=== PATIENT | male | born 1950 | race Caucasian/White ===

== ENCOUNTER 2016-04-13 18:04 | Inpatient (IN) | payer OTHER ==
[2016-04-13] MEDS ORDERED: FUROSEMIDE INJ 100 MG/10 ML VIAL IV ONE (18:33)
--- NOTE | 2016-04-13 19:00 | ED.PDOC ---
History of Present Illness - General Chief Complaint: Respiratory Problem Stated Complaint: lower extremity swelling and sob Time Seen by Provider: 04/13/16 18:12 Source: patient, RN notes reviewed, Vital Signs reviewed, family Exam Limitations: no limitations - History of Present Illness Initial Comments: Patient has noticed some progressively worsening swelling of his lower extremities that is now up to his hips. Along with this he is having some worsening SOB. No similar episodes in past but he does take Lasix 80mg PO daily. HE has had some episodes of chest pain/heaviness that he has taken his nitroglycerin for. Timing/Duration: getting worse - Over the past month. Severity: severe Activities at Onset: none Possible Cause: other - Pos. MT Improving Factors: rest Worsening Factors: movement Associated Symptoms: chest pain Respiratory Risk Factors: no cause identified Allergies/Adverse Reactions: Allergies Warfarin [From Coumadin] Allergy (Verified 04/13/16 18:59) Review of Systems - Review of Systems Constitutional: States: weakness. Denies: chills, diaphoresis, fever, malaise EENTM: States: no symptoms reported Respiratory: States: cough, orthopnea, short of breath Cardiology: States: chest pain, edema. Denies: palpitations, syncope Gastrointestinal/Abdominal: States: no symptoms reported. Denies: abdominal pain, nausea, vomiting Musculoskeletal: States: no symptoms reported Skin: States: see HPI, change in color Neurological: Denies: headache, numbness, paresthesia, tingling, tremors Endocrine: States: unexplained weight gain Hematologic/Lymphatic: States: no symptoms reported Family Medical History - Family History Mother Family History: Unknown Physical Exam - Physical Exam General Appearance: Alert, Comfortable, No apparent distress, Well Developed, Well Groomed, Well Hydrated, Well Nourished Neck: non-tender, full range of motion, supple, normal inspection Respiratory: no respiratory distress, no accessory muscle use, decreased breath sounds, crackles Cardiovascular/Chest: no gallop, no JVD, no murmur, bradycardia Peripheral Pulses: dorsalis pedis,right: 2+, dorsalis pedis,left: 2+ Gastrointestinal/Abdominal: normal bowel sounds, non tender, soft, no organomegaly, no pulsatile mass Extremity: pedal edema - 2-4+ all the way up to his proximal thighs. Neurologic: no motor/sensory deficits, alert, normal mood/affect, oriented x 3 Skin Exam: other - Bilateral LE erythema Progress - Progress Progress: 04/13/16 19:[address] Smith. Will admit patient. - Results/Orders Results/Orders: Laboratory Tests 04/13/16 18:45 Sodium 135 Potassium 5.4 H Chloride 101 Carbon Dioxide 25 Anion Gap 14.4 BUN 43 H Creatinine 2.39 H BUN/Creatinine Ratio 18.0 Random Glucose 107 H Serum Osmolality 281.4 Calcium 9.2 Total Bilirubin 0.9 AST 17 ALT < 8 L Alkaline Phosphatase 86 Creatine Kinase 75 CK-MB (CK-2) 2.5 CK-MB (CK-2) % Not Reportable Troponin I < 0.02 B-Natriuretic Peptide 1040.0 H* Serum Total Protein 7.2 Albumin 3.9 Globulin 3.3 Albumin/Globulin Ratio 1.2 - EKG/XRAY/CT EKG: [place], Sinus, nonspecific ST T wave Chg Comments: Demand pacemaker XRAY: chest - No acute process per Radiology Departure - Departure Clinical Impression: Congestive heart failure Time of Disposition: 19:34 Disposition: Admit Patient Condition: Fair Departure Forms: ED Discharge - Pt. Copy, Patient Portal Self Enrollment Decision To Admit - Decistion To Admit Decision to Admit Reason: Admit from ER - CHF
--- NOTE | 2016-04-13 19:10 | RAD ---
EXAM DESCRIPTION: Chest,2 Views CLINICAL HISTORY: SOB/Edema COMPARISON: October 22, 2008 FINDINGS: Cardiac silhouette is unchanged compared with the prior exam. Aorta is tortuous. Pacer leads project over the heart. There is no focal parenchymal or pleural disease. There is no acute osseous process visualized. IMPRESSION: No evidence of acute cardiopulmonary disease. Electronically signed by: Hesham Moreno MD 04/13/2016 7:09 PM RECEIVING COORDINATOR
[2016-04-13] MEDS ORDERED: FUROSEMIDE INJ 40 MG/4 ML VIAL ONE (19:15)
[2016-04-13] MEDS ORDERED: MAGNESIUM HYDROXIDE 30 ML UD PO PRN (19:54)
[2016-04-13] MEDS ORDERED: NITROGLYCERIN 0.4 MG 25 EA TAB SL PRN (19:54)
[2016-04-13] MEDS ORDERED: LEVALBUTEROL NEBS 1.25 MG/3 ML VIAL INH PRN (19:54)
[2016-04-13] MEDS ORDERED: GLUCAGON INJ 1 MG VIAL SUBCU PRN (19:54)
[2016-04-13] MEDS ORDERED: DEXTROSE 50% 25 GM/50 ML SYG IV PRN (19:54)
--- NOTE | 2016-04-13 20:00 | HP ---
HISTORY OF PRESENT ILLNESS: This 66 year-old white male is admitted to the hospital from the Emergency Room because of 1 month of progressive worsening swelling of his lower extremities up to his pelvis with associated shortness of breath and weakness. He has had some mild swelling in the past. He admits that he drinks a lot of fluids, water and coffee every day. He has worked in the oil field in the past. History of a myocardial infarction in 2004 which has resulted in what appeared to be a "aneurysm" on the inside of his heart possibly suggesting an area of dyskinesia noted on echocardiogram by his vehicle insurance agent at the [facility] in [place]. Of note is that he stopped smoking about 5 years ago. After communicating with his clinic at the [facility] in [place], they increased his Lasix to 40 mg twice a day over the last couple of weeks but his swelling has gotten worse. His legs are reddish and warm with an element of "cellulitis." He does not have any oxygen at home and was noted to have saturations in the mid 80s on room air on his arrival into the Emergency Room. He is admitted to the hospital because of this new onset of congestive heart failure for specific treatment and further cardiac intervention. PAST MEDICAL HISTORY: 1. Diabetes mellitus type 2 on Metformin. 2. History of Streptococcus pneumonia in 2008 requiring intubation and transfer to [facility]. 3. History of elevated cholesterol. 4. Chronic obstructive pulmonary disease. 5. History of myocardial infarction in 2004. PAST SURGICAL HISTORY: 1. Appendectomy. 2. Several levels of laminectomy in his back. CURRENT MEDICATIONS: Please refer to nurses' notes for a list of his current verified medications. ALLERGIES: COUMADIN WHICH CAUSES A RASH. FAMILY HISTORY: Heart disease, cancer, strokes and diabetes. SOCIAL HISTORY: The patient has worked in the [employer] for many years. He stopped smoking 5 years ago. REVIEW OF SYSTEMS: The patient has had a significant weight loss since last summer. He was over 300 pounds prior to that and dropped down to about 198 pounds and did not feel that well. He has not been followed closely by local clinics and tends to drive up to [place] when he needs to. No significant fever or chills with his current illness. HEENT: No hearing or vision disturbances. NECK: Otherwise supple except for some decreased range of motion. PULMONARY: Some shortness of breath especially upon exertion. No significant sputum production and no hemoptysis. CARDIOVASCULAR: No chest pains. He has had some irregular pulses in the past. GASTROINTESTINAL: No nausea, vomiting or diarrhea. No blood in the stools noted. GENITOURINARY: No dysuria. EXTREMITIES: Significant edema, swelling, pitting edema up to his hips bilaterally noted especially worsening for the last month even with increased amounts of diuretics which may have contributed to some of his renal failure underlying. NEUROLOGIC: Somewhat weak here lately. No focal weakness. PHYSICAL EXAMINATION: VITAL SIGNS: Afebrile, pulse 61, blood pressure 110/52, respirations 20, pulse oximetry 86% on room air up to 94 after nasal cannula placed. Weight 108 kilos. GENERAL: The patient is awake, alert and oriented, and communicative. His is also present who assists with the history determination and she is an RN. HEENT: Unremarkable. NECK: Increased jugular venous distention at about 45 degrees up to the jaw, right side of the neck. CHEST: Lungs have somewhat diminished breath sounds bilaterally but no significant rhonchi and minimal rales in the bases noted. CARDIOVASCULAR: Heart tones slight irregularities evident and somewhat diminished and distant heart tones present. ABDOMEN: Generally soft with some mild epigastric tenderness upon palpation. No organomegaly otherwise evident. Liver is not significantly enlarged to palpation. EXTREMITIES: He has a firmness with some slight edema but moderate amount of pitting edema up to and including the hip regions bilaterally. Discoloration of the skin appears to be somewhat chronic and there is increased heat on both sides. Negative history of DVT in the past or pulmonary emboli. NEUROLOGIC: No focal neurological deficits. The patient is awake, alert and oriented, and communicative. LABORATORY: White count is 8,800, hemoglobin 11 with a normocytic normochromic presentation, platelet count though is very low at 55,000 and 64% neutrophils. Chemistry shows potassium elevated at 5.4, BUN elevated at 43, creatinine of 2.39, glucose 107. Liver enzymes unremarkable. Troponin is zero. Beta natriuretic peptide of 1,040. Albumin 3.9. Urinalysis and other lab studies pending. No cultures taken yet. Chest x-ray is performed and shows pacemaker in place with a tortuous aorta with no acute cardiopulmonary process appreciated. EKG does show an occasional ventricular pacemaker capture, otherwise with a bradycardic arrhythmia with PVCs noted and associated ST and T changes. ASSESSMENT: 1. Acute congestive heart failure predominantly right ventricular possibly as a residual complication of previous myocardial infarction in 2004. 2. Significant edema state with presentation of anasarca up to the pelvis. 3. History of hypothyroidism. 4. History of coronary artery disease with a probable associated residual ischemic cardiomyopathy. 5. Chronic obstructive pulmonary disease with radiographic findings in a chronic smoker now stopped. 6. Renal failure probable acute, possible prerenal azotemia from significant increased diuresis in the last month. 7. Thrombocytopenia possibly related and secondary to hypersplenism from congestive heart failure. PLAN: Await laboratory studies and repeat in the morning. Continue with the diuresis initiated in the Emergency Room. Continue with oral restricted fluids. Will stop his Metformin because of the renal injury and continue with sliding scale as well as Glucotrol instead. Continue with Lovenox and SCDs for DVT prophylaxis. Check ultrasound Doppler for DVT presence in the lower extremities. To discuss and see if Dr. Garcia would be able to assist with his ongoing care from a local standpoint with recheck of echocardiogram to see if a significant ventricular aneurysm may be present contributing to his current symptoms. Consider low dose Coreg. Low blood pressure may limit the ability of significant beta blockade or Chandan inhibitors. Check magnesium and repeat followup in the morning. #[id number] [facility]
[2016-04-13] MEDS ORDERED: ACETAMINOPHEN 325 MG TAB PO PRN (20:03)
[2016-04-13] MEDS: IPRATROPIUM/ALBUTEROL 3 ML VIAL INH SCH (20:59)
[2016-04-13] MEDS ORDERED: CARVEDILOL 3.125 MG TAB PO SCH (21:00)
[2016-04-13] MEDS: SODIUM CHLORIDE 0.9% (FLUSH) 10 ML SYG IV SCH (21:40)
[2016-04-13] MEDS: ENOXAPARIN SODIUM 40 MG/0.4 ML SYG SUBCU SCH (21:49)
[2016-04-13] MEDS: INSULIN LISPRO 100 UNITS/ML PEN SUBCU SCH (21:50)
[2016-04-13] MEDS: IV SET AND CAP CHANGE INJ INJ SCH (21:51)
[2016-04-14] MEDS ORDERED: ACETAMINOPHEN 500 MG TAB ONE (02:27)
[2016-04-14] MEDS: ACETAMINOPHEN 325 MG TAB PO PRN (02:40)
[2016-04-14] MEDS: INSULIN LISPRO 100 UNITS/ML PEN SUBCU SCH ×4 (07:08→21:14)
[2016-04-14] MEDS: glipiZIDE 5 MG TAB PO SCH (07:10)
--- NOTE | 2016-04-14 07:27 | RAD ---
Study: Frontal and Lateral Views of the Chest. Indication: CHF Comparison: April 13, 2016. Impression: Multiple lead cardiac pacemaker. Cardiomegaly with progressive mild pulmonary vascular congestion. Subtle bibasilar opacities versus atelectasis. Short-term follow-up recommended. No pleural effusion or pneumothorax. Degenerative changes of the spine noted. Electronically signed by: Joby Leyva MD 04/14/2016 7:26 AM CLINIC MANAGER
[2016-04-14] MEDS: ASPIRIN (CHEWABLE) 81 MG TAB PO SCH (08:30)
[2016-04-14] MEDS: FLUoxetine HCL 20 MG CAP PO SCH (08:30)
[2016-04-14] MEDS: LEVOTHYROXINE SODIUM 0.075 MG TAB PO SCH (08:30)
[2016-04-14] MEDS: GABAPENTIN 100 MG CAP PO SCH ×3 (08:31→20:42)
[2016-04-14] MEDS: METOPROLOL SUCCINATE XL 25 MG TAB PO SCH (08:31)
[2016-04-14] MEDS: LISINOPRIL 5 MG TAB PO SCH (08:31)
[2016-04-14] MEDS: SODIUM CHLORIDE 0.9% (FLUSH) 10 ML SYG IV SCH ×2 (08:32→20:43)
[2016-04-14] MEDS: traMADol HCL 50 MG TAB PO PRN (08:47)
[2016-04-14] MEDS: IPRATROPIUM/ALBUTEROL 3 ML VIAL INH SCH ×4 (08:55→19:47)
[2016-04-14] MEDS ORDERED: FUROSEMIDE INJ 20 MG/2 ML VIAL IV SCH (09:00)
--- NOTE | 2016-04-14 10:35 | RAD ---
Study: Frontal and Lateral Views of the Chest. Indication: CHF Comparison: April 13, 2016. Impression: Multiple lead cardiac pacemaker. Cardiomegaly with progressive mild pulmonary vascular congestion. Subtle bibasilar opacities versus atelectasis. Short-term follow-up recommended. No pleural effusion or pneumothorax. Degenerative changes of the spine noted. Electronically signed by: Joby Leyva MD 04/14/2016 7:26 AM BIAS BINDING FOLDER
[2016-04-14] MEDS: FUROSEMIDE INJ 20 MG/2 ML VIAL IV SCH ×2 (10:36→17:25)
[2016-04-14] MEDS: SODIUM CHLORIDE 0.9% (FLUSH) 10 ML SYG IV PRN ×2 (10:37→17:24)
--- NOTE | 2016-04-14 11:21 | US ---
Study: Bilateral Lower Extremity Venous Doppler Sonogram. Indication: edema,erythema Technique: Multiplanar grayscale and Doppler sonographic images of the bilateral lower extremity veins obtained. Findings: The deep veins of the bilateral lower extremities demonstrate appropriate color Doppler flow, compression, and augmentation without evidence of deep venous thrombosis. Impression: 1. No sonographic evidence of deep venous thrombosis of the right or left lower extremities. Electronically signed by: Joby Leyva MD 04/14/2016 11:20 AM MUD ANALYSIS OPERATOR
[2016-04-14] MEDS: TIOTROPIUM INHALER INH SCH (14:01)
[2016-04-14] MEDS: BUDESONIDE/FORMOTEROL 160/4.5 60 PUFF/6 GM INH INH SCH ×2 (14:01→20:00)
--- NOTE | 2016-04-14 17:02 | PN ---
DATE: 04/14/16 SUBJECTIVE: The patient in many ways states that his swollen legs seem to be less swollen today. He still has some exertional shortness of breath upon exertion. When doing an ambulation study, his saturation on room air dropped from 91 to the upper 80s before return to 91 after resting. This will be repeated tomorrow so that we can hopefully see some steady improvement in his lung function. OBJECTIVE: Afebrile, pulse 65, blood pressure 105/60, pulse oximetry 93%. His weight has theoretically gone down from approximately 108 to 103 kilos and whether this is accurate will need to be continued to be monitored. Approximately 2600 mL of urine output has come out since admission. LUNGS: Generally clear with some diminished breath sounds and a few rhonchi, especially on the right compared to the left. HEART: Tones are somewhat distant. ABDOMEN: Soft. Lower extremities have thigh high MARIE hose on and the basic tissue appears to be less tight compared to on admission. LABORATORY: Hemoglobin dropped from 11 to 10.4, platelets from 55,000 to 45, 000. Chemistry shows sodium 133, potassium 5.4 down to 4.6 while BUN decreased slightly from 43 to 42, creatinine from 2.39 to 2.16, glucose 123 while hemoglobin A1c is within normal limits at 5.7. Calcium 8.8, magnesium normal at 1.8. Liver enzymes otherwise unremarkable. Repeat troponin is zero. C reactive protein slightly elevated at 2.1. Cholesterol is 100, triglycerides 63. Urinalysis is clean. Stool guaiac is negative on 1 occasion and no cultures. Lower extremity ultrasound Dopplers for DVT exam is negative. Repeat chest x-ray does still show some degree of pulmonary congestion. ASSESSMENT: 1. Acute congestive heart failure predominantly right ventricle but possibly residual as a complication of previous myocardial infarction versus primary valvular disease. 2. Significant edema state with presentation of anasarca up to the pelvis. 3. History of hypothyroidism. 4. History of coronary artery disease with probable associated residual ischemic cardiomyopathy. 5. Chronic obstructive pulmonary disease with radiographic findings in a chronic smoker now stopped. 6. Chronic renal failure probable acute on chronic possibly aggravated by prerenal azotemia because of significant home diuresis showing slight improvement. 7. Thrombocytopenia possibly related and secondary to hypersplenism from congestive heart failure with observation to continue. PLAN: Continue with thigh high MARIE hose to assist with the removal of the significant tissue edema of the lower extremities. This will be redistributed within the vascular space. Dr. Garcia was able to see the patient and is in the process of completing an echocardiogram and a cardiology note which we are looking forward to seeing. Have requested Social Service to assist with acquiring a summation of various medical and cardiology notes from the [facility] to assist with local care. Social Service also to assist in scheduling a local clinic with the [facility] to allow them to be authorized to provide ongoing care to the patient in addition to the [facility] in [place]. Close followup suggested. Continue treatment course and reevaluation. #[id number] [facility]
[2016-04-14] MEDS: ENOXAPARIN SODIUM 40 MG/0.4 ML SYG SUBCU SCH (20:42)
[2016-04-15] MEDS: LEVOTHYROXINE SODIUM 0.075 MG TAB PO SCH (06:19)
[2016-04-15] MEDS: INSULIN LISPRO 100 UNITS/ML PEN SUBCU SCH ×4 (07:41→21:20)
[2016-04-15] MEDS: glipiZIDE 5 MG TAB PO SCH (07:41)
[2016-04-15] MEDS: TIOTROPIUM INHALER INH SCH (08:49)
[2016-04-15] MEDS: IPRATROPIUM/ALBUTEROL 3 ML VIAL INH SCH ×4 (08:49→20:30)
[2016-04-15] MEDS: BUDESONIDE/FORMOTEROL 160/4.5 60 PUFF/6 GM INH INH SCH ×2 (08:49→20:30)
[2016-04-15] MEDS: FUROSEMIDE INJ 20 MG/2 ML VIAL IV SCH ×2 (09:06→17:49)
[2016-04-15] MEDS: ASPIRIN (CHEWABLE) 81 MG TAB PO SCH (09:07)
[2016-04-15] MEDS: METOPROLOL SUCCINATE XL 25 MG TAB PO SCH (09:07)
[2016-04-15] MEDS: SODIUM CHLORIDE 0.9% (FLUSH) 10 ML SYG IV SCH ×2 (09:08→21:20)
[2016-04-15] MEDS: LISINOPRIL 5 MG TAB PO SCH (09:08)
[2016-04-15] MEDS: GABAPENTIN 100 MG CAP PO SCH ×3 (09:08→21:20)
[2016-04-15] MEDS: FLUoxetine HCL 20 MG CAP PO SCH (09:08)
[2016-04-15] MEDS: PANTOPRAZOLE SODIUM IV 40 MG VIAL IV SCH (12:21)
[2016-04-15] MEDS: SODIUM CHLORIDE 0.9% 10 ML VIAL IV PRN (12:31)
[2016-04-15] MEDS ORDERED: methylPREDNISolone SODIUM SUC 125 MG/2 ML VIAL IV ONE (13:30)
[2016-04-15] MEDS ORDERED: methylPREDNISolone SODIUM SUC 125 MG/2 ML VIAL ONE (18:11)
[2016-04-15] MEDS: ENOXAPARIN SODIUM 40 MG/0.4 ML SYG SUBCU SCH (21:20)
[2016-04-15] MEDS ORDERED: TEMAZEPAM 15 MG CAP PO PRN (23:43)
[2016-04-15] MEDS: SODIUM CHLORIDE 0.9% (FLUSH) 10 ML SYG IV PRN (23:50)
[2016-04-15] MEDS: methylPREDNISolone SODIUM SUC 125 MG/2 ML VIAL IV SCH (23:51)
[2016-04-16] MEDS: SODIUM CHLORIDE 0.9% (FLUSH) 10 ML SYG IV PRN ×2 (06:39→11:47)
[2016-04-16] MEDS: LEVOTHYROXINE SODIUM 0.075 MG TAB PO SCH (06:40)
[2016-04-16] MEDS: glipiZIDE 5 MG TAB PO SCH (06:40)
[2016-04-16] MEDS: methylPREDNISolone SODIUM SUC 125 MG/2 ML VIAL IV SCH ×2 (06:40→11:46)
[2016-04-16] MEDS: INSULIN LISPRO 100 UNITS/ML PEN SUBCU SCH ×4 (08:01→21:02)
[2016-04-16] MEDS: IPRATROPIUM/ALBUTEROL 3 ML VIAL INH SCH ×4 (08:25→21:02)
[2016-04-16] MEDS ORDERED: FUROSEMIDE INJ 40 MG/4 ML VIAL IV SCH (09:00)
[2016-04-16] MEDS: TIOTROPIUM INHALER INH SCH (09:10)
[2016-04-16] MEDS: BUDESONIDE/FORMOTEROL 160/4.5 60 PUFF/6 GM INH INH SCH ×2 (09:10→21:02)
[2016-04-16] MEDS: GABAPENTIN 100 MG CAP PO SCH ×3 (09:11→20:59)
[2016-04-16] MEDS: FLUoxetine HCL 20 MG CAP PO SCH (09:11)
[2016-04-16] MEDS: METOPROLOL SUCCINATE XL 25 MG TAB PO SCH (09:12)
[2016-04-16] MEDS: LISINOPRIL 5 MG TAB PO SCH (09:12)
[2016-04-16] MEDS: ASPIRIN (CHEWABLE) 81 MG TAB PO SCH (09:12)
[2016-04-16] MEDS: SODIUM CHLORIDE 0.9% (FLUSH) 10 ML SYG IV SCH ×2 (09:21→21:00)
--- NOTE | 2016-04-16 10:01 | PN ---
SUPERVISING PHYSICIAN: Grecia Urrutia MD DATE: 04/15/16 SUBJECTIVE: The patient is sitting up in his bed. He denies any shortness of breath, chest pain, abdominal pain, nausea, vomiting, diarrhea, dizziness, or weakness. OBJECTIVE: VITAL SIGNS: Afebrile. Heart rate 65. Blood pressure 106/44. Respiratory rate 20. O2 saturation 90% on 2 liters nasal cannula. LUNGS: Essentially clear to auscultation on the right, but he does have significant expiratory wheezing on the left upper and left middle lobes. He is somewhat diminished at the bases. CARDIAC: Regular rate and rhythm. ABDOMEN: Slightly distended, but nontender. Bowel sounds are positive. EXTREMITIES: No cyanosis, clubbing or edema. NEUROLOGIC: Awake, alert and oriented times three. LABORATORY: Hemoglobin 9.7, hematocrit 29.1, platelet count 48. Sodium 138, potassium 4.1, chloride 103, BUN 45, creatinine 1.99. BNP 790. Lower extremity ultrasounds are negative for DVT. Echocardiogram done per Dr. Garcia yesterday shows ventricular dysfunction with an ejection fraction of 40% to 45% . All other labs and films have been reviewed via the EMR. ASSESSMENT: 1. Acute congestive heart failure with ventricular dysfunction and an ejection fraction of 40% to 45% being seen yesterday per Dr. Garcia. 2. Significant edema state with presentation of anasarca to the pelvis, slightly improved. 3. History of myocardial infarction in 2004. 4. Hypothyroidism. 5. History of coronary artery disease with probable associated residual ischemic cardiomyopathy. 6. Chronic obstructive pulmonary disease. 7. Acute on chronic renal failure, slightly improved. 8. Thrombocytopenia. PLAN: We will continue to monitor the patient closely. We will repeat a CBC and CMP in the morning plus a magnesium. I have ordered a spleen ultrasound tomorrow and we will most likely need a hematology consult, so I will call Dr. Moe tomorrow to see if she can see him the next time she is in [place]. I have given him a proton pump inhibitor for ulcer prophylaxis daily as well as encouraged good pulmonary toilet. I have also started him on some steroids. We will repeat a chest x-ray in the morning. Dr. Garcia has recommended that he continue his Lasix. Right now he continues to IV Lasix and we will possibly switch him to p.o. Lasix tomorrow. We will continue to monitor the patient closely and followup as needed. Dr. Urrutia is the collaborating physician and available for consultation. #[id number] [facility]
[2016-04-16] MEDS: SODIUM CHLORIDE 0.9% 10 ML VIAL IV PRN (11:46)
[2016-04-16] MEDS: PANTOPRAZOLE SODIUM IV 40 MG VIAL IV SCH (11:47)
--- NOTE | 2016-04-16 11:55 | US ---
EXAM DESCRIPTION: Spleen CLINICAL HISTORY: low platelets COMPARISON: None. IMPRESSION: Real-time sonographic images of the left upper quadrant of the abdomen are obtained for evaluation of the spleen. Spleen measures 13.2 x 13.5 x 9.5 cm which is enlarged. Spleen is diffusely homogeneous and normal in echogenicity. Small amount of anechoic fluid suggesting ascites is seen around the spleen. Electronically signed by: Charlie Qiu MD 04/16/2016 11:54 AM SENIOR MEDIA BUYER
--- NOTE | 2016-04-16 17:09 | PN ---
DATE: 04/16/16 SUPERVISING PHYSICIAN: Kar Urrutia M.D. SUBJECTIVE: The patient is walking in the hallways and he is in no acute distress. He denies any shortness of breath. He returned to his room and he denies any shortness of breath, chest pain, abdominal pain, nausea or vomiting, diarrhea, dizziness or weakness. He feels that he has improved daily. He has had a sonogram of his spleen this morning and at this point feels fairly good. OBJECTIVE: VITAL SIGNS: He is afebrile, pulse rate 75, blood pressure 118/62, respiratory rate 18, O2 sat is 93%. RESPIRATORY: Clear to auscultation bilaterally. CARDIAC: Regular rate and rhythm. ABDOMEN: Soft, nondistended, non-tender. Bowel sounds are positive. EXTREMITIES: No cyanosis, clubbing or edema. NEUROLOGIC: He is awake, alert and oriented times three. LABORATORY: WBCs 4.8, hemoglobin 9.9, hematocrit 29.9, platelet count 40, neutrophils 93.5. Chemistries show sodium 135, potassium 4.4, chloride 100, BUN 40, creatinine 1.82. Ultrasound of the spleen shows a spleen that measures 13.2 x 13.5 x 9.5 cm spleen which is enlarged. The spleen is diffusely homogeneous and normal in echogenicity. There is a small amount of anechoic fluid suggesting ascites around the spleen. All other labs and films have been reviewed via the EMR. ASSESSMENT: 1. Acute congestive heart failure with ventricular dysfunction and an ejection fraction of 40 to 45%, recently seen by Dr. Garcia while in the hospital. 2. Significant edema state with presentation of anasarca to the pelvis, slightly improved. 3. Thrombocytopenia with recent sonogram of the spleen that shows an enlarged spleen with some fluid. 4. History of myocardial infarction in 2004. 5. Hypothyroidism. 6. History of coronary artery disease with residual ischemic cardiomyopathy. 7. Chronic obstructive pulmonary disease. 8. Acute on chronic renal failure that continues to improve. PLAN: I have transitioned his Solu-Medrol to p.o. Prednisone. We have also resumed his home dosing of Lasix. I am not sure why his platelets continue to be low, but he will most likely need a followup with Dr. Moe who is a lime supervisor. He should be able to go home tomorrow if he continues to improve. Will repeat his lab and x-ray in the morning. I will continue to encourage good pulmonary toilet, walking in the hallways. Dr. Urrutia is the supervising physician available for consultation. #[id number] [facility]
[2016-04-16] MEDS: ENOXAPARIN SODIUM 40 MG/0.4 ML SYG SUBCU SCH (21:02)
[2016-04-16] MEDS: IV SET AND CAP CHANGE INJ INJ SCH (21:03)
[2016-04-17] MEDS ORDERED: ACETAMINOPHEN 500 MG TAB ONE (05:29)
[2016-04-17] MEDS: ACETAMINOPHEN 325 MG TAB PO PRN (05:36)
[2016-04-17] MEDS: LEVOTHYROXINE SODIUM 0.075 MG TAB PO SCH (06:28)
[2016-04-17] MEDS: glipiZIDE 5 MG TAB PO SCH (06:29)
--- NOTE | 2016-04-17 06:39 | RAD ---
Clinical History : chf , MAIN Exam : PA and lateral views of the chest 04/17/2016 5:00 AM COOK JELLY Comparisons : PA and lateral views of the chest April 16, 2016 Findings : There is stable diffuse peribronchial thickening throughout the lungs bilaterally. There is no focal consolidation or pleural effusion.. The heart is stable in size. The mediastinal contours are normal in appearance. There is a left chest three lead pacer /AICD in place. The thoracic spine is age appropriate. The shoulders are unremarkable. Limited evaluation of the upper abdomen demonstrates no gross abnormalities. Impression: Stable cardiomegaly with mild pulmonary edema. Electronically signed by: Clarence Mayfield MD 04/17/2016 6:38 AM COOK JELLY
[2016-04-17] MEDS: IPRATROPIUM/ALBUTEROL 3 ML VIAL INH SCH ×4 (08:27→21:26)
[2016-04-17] MEDS: TIOTROPIUM INHALER INH SCH (08:27)
[2016-04-17] MEDS: BUDESONIDE/FORMOTEROL 160/4.5 60 PUFF/6 GM INH INH SCH ×2 (08:27→21:27)
[2016-04-17] MEDS: INSULIN LISPRO 100 UNITS/ML PEN SUBCU SCH ×4 (09:00→22:12)
[2016-04-17] MEDS ORDERED: metFORMIN HCL 500 MG TAB PO SCH (09:00)
[2016-04-17] MEDS: FUROSEMIDE 40 MG TAB PO SCH (09:02)
[2016-04-17] MEDS: FLUoxetine HCL 20 MG CAP PO SCH (09:02)
[2016-04-17] MEDS: GABAPENTIN 100 MG CAP PO SCH ×3 (09:02→21:20)
[2016-04-17] MEDS: traMADol HCL 50 MG TAB PO PRN ×2 (09:03→21:20)
[2016-04-17] MEDS: METOPROLOL SUCCINATE XL 25 MG TAB PO SCH (09:04)
[2016-04-17] MEDS: LISINOPRIL 5 MG TAB PO SCH (09:04)
[2016-04-17] MEDS: predniSONE 20 MG TAB PO SCH (09:04)
[2016-04-17] MEDS: ASPIRIN (CHEWABLE) 81 MG TAB PO SCH (09:05)
[2016-04-17] MEDS: SODIUM CHLORIDE 0.9% (FLUSH) 10 ML SYG IV SCH ×2 (09:07→21:24)
[2016-04-17] MEDS ORDERED: ACETAMINOPHEN 500 MG TAB PO PRN (09:11)
[2016-04-17] MEDS ORDERED: HCTZ 25 MG/TRIAMTERENE 37.5 MG 1 EA CAP ONE (09:13)
[2016-04-17] MEDS: HCTZ 25 MG/TRIAMTERENE 37.5 MG 1 EA CAP PO SCH (09:14)
[2016-04-17] MEDS ORDERED: FUROSEMIDE INJ 40 MG/4 ML VIAL IV ONE (10:53)
[2016-04-17] MEDS ORDERED: ALPRAZolam 0.25 MG TAB PO PRN (10:53)
[2016-04-17] MEDS: PANTOPRAZOLE SODIUM TAB 40 MG PO SCH (11:49)
[2016-04-17] MEDS: SODIUM CHLORIDE 0.9% (FLUSH) 10 ML SYG IV PRN (11:51)
--- NOTE | 2016-04-17 13:37 | RAD ---
EXAM DESCRIPTION: Chest,2 Views CLINICAL HISTORY: Congestive heart failure. Wheezing COMPARISON: 04/14/2016 TECHNIQUE: Two-views of the chest. FINDINGS: Cardiac pacemaker. Heart size top limits normal. The lung bases are not completely included in the frontal radiograph. Lungs are hyperinflated similar to previous study. No pulmonary edema or focal consolidation Vascular congestion without interstitial edema or effusion IMPRESSION: Stable chest. Vascular congestion No focal infiltrate. Electronically signed by: Kar Wilcox MD 04/16/2016 7:13 AM ASSISTANT PROFESSOR OF EDUCATION
[2016-04-18] MEDS: LEVOTHYROXINE SODIUM 0.075 MG TAB PO SCH (06:23)
[2016-04-18] MEDS: glipiZIDE 5 MG TAB PO SCH (06:23)
[2016-04-18] MEDS: PANTOPRAZOLE SODIUM TAB 40 MG PO SCH (06:23)
[2016-04-18] MEDS: INSULIN LISPRO 100 UNITS/ML PEN SUBCU SCH (07:37)
[2016-04-18 07:45] VITALS: O2SAT 90
[2016-04-18] MEDS: BUDESONIDE/FORMOTEROL 160/4.5 60 PUFF/6 GM INH INH SCH (08:20)
[2016-04-18] MEDS: IPRATROPIUM/ALBUTEROL 3 ML VIAL INH SCH (08:20)
[2016-04-18] MEDS: TIOTROPIUM INHALER INH SCH (08:20)
[2016-04-18] MEDS: METOPROLOL SUCCINATE XL 25 MG TAB PO SCH (09:19)
[2016-04-18] MEDS: FLUoxetine HCL 20 MG CAP PO SCH (09:19)
[2016-04-18] MEDS: FUROSEMIDE 40 MG TAB PO SCH (09:20)
[2016-04-18] MEDS: HCTZ 25 MG/TRIAMTERENE 37.5 MG 1 EA CAP PO SCH (09:20)
[2016-04-18] MEDS: GABAPENTIN 100 MG CAP PO SCH (09:20)
[2016-04-18] MEDS: LISINOPRIL 5 MG TAB PO SCH (09:20)
[2016-04-18] MEDS: ASPIRIN (CHEWABLE) 81 MG TAB PO SCH (09:20)
[2016-04-18] MEDS: SODIUM CHLORIDE 0.9% (FLUSH) 10 ML SYG IV SCH (09:21)
[2016-04-18] MEDS: predniSONE 20 MG TAB PO SCH (09:24)
[2016-04-18 11:30] VITALS: BP 115/77; TEMP 98.5
--- NOTE | 2016-04-18 12:25 | PN ---
DATE: 04/17/16 SUPERVISING PHYSICIAN: Jimmy García M.D. SUBJECTIVE: The patient is lying in bed. His is at the bedside. He is very lethargic. He says he is having a hard time staying awake today. He has had Restoril the last 2 nights and he has never taken it before. Otherwise he has no complaints of shortness of breath, chest pain, nausea or vomiting or diarrhea. Denies any headache or dizziness, just extremely tired. OBJECTIVE: VITAL SIGNS: He is afebrile, heart rate 87, blood pressure 116/77, respiratory rate 18, O2 sat is 92% and it goes as low as 87% on room air. RESPIRATORY: Essentially clear to auscultation bilaterally, somewhat diminished at the bases. CARDIAC: Regular rate and rhythm. ABDOMEN: Soft, nondistended, non-tender. Bowel sounds are positive. EXTREMITIES: No cyanosis, clubbing or edema. NEUROLOGIC: He is lethargic. He does awaken to command and answers questions appropriately. He is oriented times three. LABORATORY: White count 10.3, hemoglobin 9.7, hematocrit 29.4, platelet count 42, neutrophils 90. Sodium 140, potassium 4.3, chloride 106, creatinine 1.7. Chest x-ray: There is a stable, diffuse peribronchial thickening throughout the lung bilaterally. There is no focal consolidation or pleural effusion. Stable cardiomegaly with mild pulmonary edema. All other labs and films have been reviewed via the EMR. ASSESSMENT: 1. Acute congestive heart failure with ventricular dysfunction and an ejection fraction of 40 to 45% recently seen by Dr. Garcia while in the hospital. 2. Significant edema state with presentation of anasarca to the pelvis that has improved. 3. Thrombocytopenia with recent sonogram of the spleen that shows an enlarged spleen with some fluid collection. 4. History of myocardial infarction in 2004. 5. Hypothyroidism. 6. History of coronary artery disease with residual ischemic cardiomyopathy. 7. Chronic obstructive pulmonary disease. 8. Acute on chronic renal failure that continues to improve. PLAN: We will plan discharge tomorrow. I have discontinued his Restoril. I spoke at length with the [facility] in [place], Dr. Asif's office. I spoke to the ophthalmic medical technician, Megan. I explained to her that the patient needed an appointment and because of his thrombocytopenia he may need a hematology workup as well as his sonogram results may indicate a GI referral. She stated that she would call the hospital on Wednesday and obtain medical records , and they would refer him to the appropriate specialist based on his lab and his testing. I have also ordered home oxygen for him as his oxygen saturations are low on room air and I believe he would benefit from that. Otherwise we will continue to monitor the patient closely. He should be discharged in the morning. Dr. García is the collaborating physician and available for consultation. #[id number] [facility]
--- NOTE | 2016-04-18 18:36 | DS ---
SUPERVISING PHYSICIAN: Jimmy García M.D. DISCHARGE DIAGNOSIS: 1. Acute congestive heart failure with ventricular dysfunction and an ejection fraction of 40 to 45% recently seen by Dr. Garcia while in the hospital. 2. Significant edema state with presentation of anasarca to the pelvis slightly improved. 3. Thrombocytopenia with recent sonogram of the spleen that showed an enlarged spleen with some accumulating fluid. 4. History of myocardial infarction in 2004. 5. Hypothyroidism. 6. History of coronary artery disease. 7. Chronic obstructive pulmonary disease. 8. Acute on chronic renal failure that has improved. HISTORY OF PRESENT ILLNESS: This is a 66 year-old male patient who is a patient of Dr. Mcallister in [place] at the [facility]. On the date of admission, he came to the Emergency Room because of 1 month of progressive worsening swelling of his lower extremities that extended up to his pelvis and associated shortness of breath and weakness. He has had a history of mild swelling in the past and he does admit that he drinks lots of fluids, water and coffee every day. He has worked in the oil field in the past. He has had a history of myocardial infarction in 2004. He had recently communicated with the [facility] and they increased his Lasix from 40 mg daily to 40 mg twice a day, but in spite of the additional diuretic, his swelling has increased. He was admitted to the hospital because of new onset of congestive heart failure and diuresis. HOSPITAL COURSE: The patient was given diuretics in the hospital as well as he was placed on fluid restriction. Due to his acute renal injury, his Metformin was stopped and Glipizide was started. He was also on sliding scale insulin. Dr. Garcia, document management consultant, saw him while he was in the hospital and an echocardiogram was done that showed ventricular dysfunction and an ejection fraction of 40 to 45%, and he recommended that he continue on his diuretics. Over the next few days, diuretics were changed from IV to p.o. His renal function improved from creatinine of 2.39 to a creatinine of 1.75, his baseline is about 1.8. He was admitted with a low platelet count of 55 and over the next several days his platelets dropped to as low as 40. Today on date of discharge, they are 46. A spleen ultrasound was done and it showed an enlarged spleen measuring 3.2 x 3.5 x 9.5 cm. It was homogeneous and normal in echogenicity, and there was a small amount of anechoic fluid suggesting ascites around the spleen. Ultrasound of his lower extremities demonstrated no DVTs. He is up walking around in the halls. He does get short of breath at times and his oxygen saturations have dropped as low as 87% during ambulation, so our Senior Security Analyst, Maia Xie, has initiated home oxygen. On oxygen while ambulating , he stays in the low 90s. I spoke with Dr. Asif's office yesterday in [place] and updated them on all of the findings at this hospitalization. The patient has progressed to be able to be discharged home today. DISCHARGE PLAN: The patient will be discharged home in good condition. He is to resume his diabetic diet and increase activity as tolerated. He will have home oxygen. He is instructed to wear it at night and as needed for shortness of breath. Again, I spoke with Dr. Asif's office and they will call [facility] on Wednesday to obtain the records and testing done while in the hospital. He will need a cardiology followup as well as he may need a hematology referral due to the low platelet count as well as a gastrointestinal consultation for the spleen issues. He is to discontinue his Metformin and continue his other home medications previously prescribed. I have given a prescription for a prednisone taper as well as Glipizide and told him to discontinue the Metformin. DISCHARGE MEDICATIONS: 1. Spiriva. 2. Symbicort. 3. Ventolin inhaler. 4. Niacin. 5. Omeprazole. 6. Potassium chloride. 7. Ropinirole. 8. Triamterene Hydrochlorothiazide. 9. Tramadol. 10. Metoprolol. 11. Lisinopril. 12. Levothyroxine. 13. Ibuprofen. 14. Hydroxyzine pamoate. 15. Gabapentin. 16. Furosemide. 17. Fluoxetine. 18. Vitamin D3. 19. Prednisone taper. 20. Glipizide. Dr. García is the collaborating physician and available for consultation. #[id number] [facility]
== END 2016-04-18 11:41 | disposition home or self-care (01) | DRG 292 ==
LOC: ER 18:04 → OBSVTOIN 20:00 → MS 20:00
PROVIDERS: ADMIT Emergency Medicine; ATTEND Nurse Practitioner Acute Care
DX: I50.9 Heart failure, unspecified (principal); N17.9 Acute kidney failure, unspecified; E03.9 Hypothyroidism, unspecified; I25.10 Atherosclerotic heart disease of native coronary artery without angina pectoris; I25.5 Ischemic cardiomyopathy; J44.9 Chronic obstructive pulmonary disease, unspecified; N18.9 Chronic kidney disease, unspecified; D69.59 Other secondary thrombocytopenia; D73.1 Hypersplenism; E78.00 Pure hypercholesterolemia, unspecified; E11.9 Type 2 diabetes mellitus without complications; I25.2 Old myocardial infarction; Z88.8 Allergy status to other drugs, medicaments and biological substances; Z79.51 Long term (current) use of inhaled steroids; Z79.84 Long term (current) use of oral hypoglycemic drugs; Z87.891 Personal history of nicotine dependence; Z79.1 Long term (current) use of non-steroidal anti-inflammatories (NSAID); Z79.899 Other long term (current) drug therapy

== ENCOUNTER 2016-05-09 17:32 | Inpatient (IN) | payer OTHER ==
--- NOTE | 2016-05-09 18:05 | ED.PDOC ---
History of Present Illness - General Chief Complaint: Diabetic Complaint Stated Complaint: low blood sugar,syncopal Time Seen by Provider: 05/09/16 17:54 Source: family - , EMS Exam Limitations: no limitations - History of Present Illness Initial Comments: Brent Hernandes 66y/o male with history of chf,dm2 was found by laying on the floor between their living room and entrance to the house just opened his eyes when name was called out and on ems arrival blood sugar take was 36mg/dl by FSBS and was given d50 iv and brought it 250 mg /dl. Timing/Duration: 1 hour Improving Factors: nothing Worsening Factors: nothing Associated Symptoms: diaphoresis, weakness Allergies/Adverse Reactions: Allergies Warfarin [From Coumadin] Allergy (Verified 04/13/16 18:59) Home Medications: Ambulatory Orders Albuterol Sulfate [Ventolin Hfa] 90 mcg IN Q6HR PRN 04/13/16 Budes/Formoterol INH 160/4.5 [Symbicort Inhaler 160/4.5] 2 puff INH BID Cholecalciferol [Vitamin D3] 1,000 unit PO DAILY 04/13/16 Fluoxetine HCl 40 mg PO QAM 04/13/16 Furosemide 80 mg PO QAM 04/13/16 Gabapentin [Neurontin] 200 mg PO TID 04/13/16 Hydroxyzine Pamoate 100 mg PO BEDTIME 04/13/16 Ibuprofen 200 mg PO Q4HR PRN 04/13/16 Levothyroxine Sodium [Synthroid] 75 mcg PO DAILY 04/13/16 Lisinopril 5 mg PO DAILY 04/13/16 Metoprolol Tartrate 75 mg PO BID 04/13/16 Niacin [Niacin Td] 1,000 mg PO BEDTIME 04/13/16 Niacin [Niacin Td] 500 mg PO QAM 04/13/16 Potassium Chloride Microencaps [Potassium Chloride Cr] 20 meq PO DAILY 04/13/16 Ropinirole Hydrochloride [Ropinirole HCl] 4 mg PO BEDTIME 04/13/16 Tiotropium [place] Monohydrate [Spiriva Handihaler] 1 puff IN DAILY 04/13/16 Tramadol HCl 50 ea PO DAILY PRN 04/13/16 Triamterene & Hydrochlorothiaz [Triamterene/Hydrochloroth 37.5-25 mg] 25 - 37.5 tab PO DAILY 04/13/16 busPIRone HCL [Buspar] 10 mg PO BEDTIME 05/09/16 glipiZIDE [Glucotrol] 5 mg PO DAILY 05/09/16 Review of Systems - Review of Systems Constitutional: States: no symptoms reported EENTM: States: no symptoms reported Respiratory: States: no symptoms reported Cardiology: States: no symptoms reported Gastrointestinal/Abdominal: States: no symptoms reported Genitourinary: States: no symptoms reported Musculoskeletal: States: no symptoms reported Skin: States: no symptoms reported Neurological: States: other - syncope Endocrine: States: see HPI Hematologic/Lymphatic: States: no symptoms reported Past Medical History (General) - Patient Medical History Hx Seizures: No Hx Stroke: No Hx Asthma: Yes Hx of COPD: Yes Hx Cardiac Disorders: Yes - LA,Pacemaker Hx Congestive Heart Failure: Yes Hx Pacemaker: Yes Hx Hypertension: Yes Hx Diabetes: Yes Surgical History: appendectomy, other - aicd,lumbar laminectomy - Vaccination History Hx Tetanus, Diphtheria Vaccination: Yes Hx Influenza Vaccination: Yes Hx Pneumococcal Vaccination: Yes - Social History Hx Tobacco Use: Yes Hx Alcohol Use: No Hx Substance Use: No Hx Substance Use Treatment: No Hx Depression: No Hx Physical Abuse: No Hx Emotional Abuse: No - Activities of Daily Living Patient Lives Alone: No - lives with family - Female History Patient : No Family Medical History - Family History Mother Family History: Unknown Hx Cardiac Disease: Yes - brother Father Family History: Unknown Brother Hx Cardiac Disease: Yes Physical Exam - Physical Exam General Appearance: Other - somnolent Eye Exam: bilateral normal Ears, Nose, Throat: hearing grossly normal, normal ENT inspection, normal pharynx Neck: non-tender, full range of motion, supple, normal inspection Respiratory: chest non-tender, lungs clear, normal breath sounds, no respiratory distress, no accessory muscle use Cardiovascular/Chest: normal peripheral pulses, regular rate, rhythm, no edema, no gallop, no JVD, no murmur Peripheral Pulses: radial,right: 2+, radial,left: 2+ Gastrointestinal/Abdominal: normal bowel sounds, non tender, soft, no organomegaly, no pulsatile mass Back Exam: normal inspection, no CVA tenderness, no vertebral tenderness Extremity: no calf tenderness, pedal edema - 3plus Neurologic: health social work professor II-XII nml as tested, no motor/sensory deficits, other - negative pronator drift Skin Exam: warm/dry Lymphatic: no adenopathy Comments: GCS-13 Progress - Results/Orders Results/Orders: 05/09/16 17:45 EKG STAT 05/09/16 18:05 Chest,1 View [RAD] Stat 05/09/16 18:48 URINE DRUG SCREEN, 7 ASSAY Stat URINALYSIS Stat 05/09/16 19:30 Dex 5% W/NaCl 0.45% 1000ML [D5 1/2NS 1000ml] 1,000 ml IVS .QD 05/09/16 20:13 Calcium Gluconate Inj 1 gm IV ONCE ONE Sodium Bicarbonate Vial [Sodium Bicarbonate] 50 meq IV ONCE ONE Laboratory Results WBC 5.5 K/mm3 (4.8-10.8) 05/09/16 18:24 RBC 3.85 M/mm3 (4.70-6.10) L 05/09/16 18:24 Hgb 11.7 gm/dL (14.0-18.0) L 05/09/16 18:24 Hct 35.8 % (42.0-52.0) L 05/09/16 18:24 MCV 93.2 fl (80.0-94.0) 05/09/16 18:24 MCH 30.3 pg (27.0-31.0) 05/09/16 18:24 MCHC 32.5 g/dL (33.0-37.0) L 05/09/16 18:24 RDW 18.6 % (11.5-14.5) H 05/09/16 18:24 Plt Count 43 K/mm3 (130-400) L* 05/09/16 18:24 MPV 8.1 fl (7.40-10.4) 05/09/16 18:24 Absolute Neuts (auto) 4.40 K/uL (1.8-6.8) 05/09/16 18:24 Absolute Lymphs (auto) 0.50 K/uL (1.0-3.4) L 05/09/16 18:24 Absolute Monos (auto) 0.20 K/uL (0.2-0.8) 05/09/16 18:24 Absolute Eos (auto) 0.30 K/uL (0.0-0.4) 05/09/16 18:24 Absolute Basos (auto) 0.00 K/uL (0.0-0.1) 05/09/16 18:24 Neutrophils % 80.0 % (42.0-78.0) H 05/09/16 18:24 Lymphocytes % 9.3 % (20.0-50.0) L 05/09/16 18:24 Monocytes % 4.2 % (2.0-9.0) 05/09/16 18:24 Eosinophils % 6.3 % (1.0-5.0) H 05/09/16 18:24 Basophils % 0.2 % (0.0-2.0) 05/09/16 18:24 PT 11.2 SECONDS (9.4-12.5) 05/09/16 18:24 INR 0.990 05/09/16 18:24 PTT (SP) 27.0 SECONDS (25.1-36.5) 05/09/16 18:24 Sodium 138 mmol/L (135-145) 05/09/16 18:24 Potassium 5.7 mmol/L (3.6-5.0) H 05/09/16 18:24 Chloride 108 mmol/L (101-111) 05/09/16 18:24 Carbon Dioxide 22 mmol/L (21-31) 05/09/16 18:24 Anion Gap 13.7 (12-18) 05/09/16 18:24 BUN 53 mg/dL (7-18) H 05/09/16 18:24 Creatinine 2.73 mg/dL (0.6-1.3) H 05/09/16 18:24 BUN/Creatinine Ratio 19.4 (10-20) 05/09/16 18:24 POC Glucose 104 mg/dL (70-105) 05/09/16 17:50 Random Glucose 43 mg/dL (70-105) L 05/09/16 18:24 Serum Osmolality 287.0 mOsm/L (275-295) 05/09/16 18:24 Calcium 9.2 mg/dL (8.4-10.2) 05/09/16 18:24 Magnesium 2.1 mg/dL (1.8-2.5) 05/09/16 18:24 Total Bilirubin 0.6 mg/dL (0.2-1.0) 05/09/16 18:24 Direct Bilirubin 0.3 mg/dL (0-0.2) H 05/09/16 18:24 Indirect Bilirubin 0.3 mg/dL (0.2-0.8) 05/09/16 18:24 AST 17 IU/L (10-42) 05/09/16 18:24 ALT 10 IU/L (10-60) 05/09/16 18:24 Alkaline Phosphatase 75 IU/L (42-121) 05/09/16 18:24 Creatine Kinase 56 IU/L (38-174) 05/09/16 18:24 CK-MB (CK-2) 2.2 ng/mL (0.0-4.4) 05/09/16 18:24 CK-MB (CK-2) % Not Reportable 05/09/16 18:24 Troponin I < 0.02 ng/mL (0.01-0.05) 05/09/16 18:24 B-Natriuretic Peptide 1540.0 pg/ml (0-100) H* 05/09/16 18:24 Serum Total Protein 7.4 gm/dL (6.4-8.2) 05/09/16 18:24 Albumin 4.1 g/dl (3.2-5.5) 05/09/16 18:24 TSH 2.35 uIU/mL (0.34-5.60) 05/09/16 18:24 - EKG/XRAY/CT Comments: pacemaker beat heart rate 62 CT: no intracranial abnormality Departure - Departure Clinical Impression: Altered awareness, transient, Drug-induced hypoglycemia without coma, Acute on chronic kidney failure Congestive heart failure Qualifiers: Congestive heart failure type: combined Congestive heart failure chronicity: chronic Qualifier Code: (I50.42) Chronic combined systolic (congestive) and diastolic (congestive) heart failure Time of Disposition: 21:21 - D/W Georges Higuera [facility] Disposition: Admit Patient Condition: Fair Home Medications: Ambulatory Orders Albuterol Sulfate [Ventolin Hfa] 90 mcg IN Q6HR PRN 04/13/16 Budes/Formoterol INH 160/4.5 [Symbicort Inhaler 160/4.5] 2 puff INH BID Cholecalciferol [Vitamin D3] 1,000 unit PO DAILY 04/13/16 Fluoxetine HCl 40 mg PO QAM 04/13/16 Furosemide 80 mg PO QAM 04/13/16 Gabapentin [Neurontin] 200 mg PO TID 04/13/16 Hydroxyzine Pamoate 100 mg PO BEDTIME 04/13/16 Ibuprofen 200 mg PO Q4HR PRN 04/13/16 Levothyroxine Sodium [Synthroid] 75 mcg PO DAILY 04/13/16 Lisinopril 5 mg PO DAILY 04/13/16 Metoprolol Tartrate 75 mg PO BID 04/13/16 Niacin [Niacin Td] 1,000 mg PO BEDTIME 04/13/16 Niacin [Niacin Td] 500 mg PO QAM 04/13/16 Potassium Chloride Microencaps [Potassium Chloride Cr] 20 meq PO DAILY 04/13/16 Ropinirole Hydrochloride [Ropinirole HCl] 4 mg PO BEDTIME 04/13/16 Tiotropium [place] Monohydrate [Spiriva Handihaler] 1 puff IN DAILY 04/13/16 Tramadol HCl 50 ea PO DAILY PRN 04/13/16 Triamterene & Hydrochlorothiaz [Triamterene/Hydrochloroth 37.5-25 mg] 25 - 37.5 tab PO DAILY 04/13/16 busPIRone HCL [Buspar] 10 mg PO BEDTIME 05/09/16 glipiZIDE [Glucotrol] 5 mg PO DAILY 05/09/16
[2016-05-09] MEDS ORDERED: POVIDONE IODINE 10 % 15 ML UD TOP ONE (18:34)
--- NOTE | 2016-05-09 18:57 | CT ---
EXAM DESCRIPTION: Head CLINICAL HISTORY: 66 years, Male, syncope TECHNIQUE: 5mm slice thickness axial images through the brain were performed in the absence of intravenous contrast. Dose reduction techniques were utilized. COMPARISON: None. FINDINGS: Several images are degraded by motion artifact. Involutional changes are present. No hemorrhage is identified. The lateral ventricles are not out of proportion to the degree of involution. The basal cisterns are patent. Vascular calcifications are present. The visualized paranasal sinuses and mastoid air cells are patent. No fracture is identified. IMPRESSION: No evidence of acute traumatic intracranial injury status post syncope. No intracranial hemorrhage. Mild motion artifact. Electronically signed by: Sharon Sam MD 05/09/2016 6:55 PM CDT
[2016-05-09] MEDS ORDERED: DEX 5% W/NACL 0.45% 1000ML 1,000 ML IVS ONE (19:10)
[2016-05-09] MEDS: DEX 5% W/NACL 0.45% 1000ML 1,000 ML IVS PRN ×2 (19:15→20:30)
[2016-05-09] MEDS ORDERED: CALCIUM GLUCONATE INJ 1 GM/10 ML VIAL ONE (20:11)
[2016-05-09] MEDS ORDERED: SODIUM BICARBONATE SYRINGE 50 MEQ/50 ML SYG IV ONE (20:12)
[2016-05-09] MEDS ORDERED: CALCIUM GLUCONATE INJ 1 GM/10 ML VIAL IV ONE (20:13)
[2016-05-09] MEDS ORDERED: SODIUM BICARBONATE VIAL 50 MEQ/50 ML VIAL IV ONE (20:13)
[2016-05-09] MEDS ORDERED: DEX 5% IV ONE (20:30)
[2016-05-09] MEDS ORDERED: NACL 0.45% IV ONE (20:30)
[2016-05-09] MEDS ORDERED: SODIUM BICARBONATE IV ONE (20:30)
--- NOTE | 2016-05-09 21:15 | HP ---
SUPERVISING PHYSICIAN: HILL JIMENEZ MD CHIEF COMPLAINT: LOW BLOOD SUGAR AND SYNCOPAL EPISODE HISTORY OF PRESENT ILLNESS: Mr. Hernandes is a 66 year-old male patient that has significant congestive heart failure, diabetes mellitus type 2 , who was found by his on the floor at home between the living room and entrance to the house. noted the patient would open his eyes when his name was called but would not respond other than that. EMS was called, they arrived on the scene and found the patient to have a blood sugar of 36 mg per deciliter at which time he was given 1 amp of D50 which brought his blood sugar up to 250. He was then transferred to the Emergency Department via ambulance for further evaluation. Laboratory studies in the Emergency Room showed the patient to have a blood sugar of 104 initially but shortly after full workup, chemistry showed he had a blood sugar of 43, potassium 5.7, BUN 53, creatinine 2.73. He also had an elevated BNP of 50 and 40, otherwise liver functions showed to be within normal limits. Toxicology screen showed to be negative for all substances tested. He was also noted to have a platelet count of 43,000 which is chronic for the patient. The patient was much more alert in the Emergency Room after given a nutritional tray. He was started on IV fluids with bicarb in efforts to help improve his kidney function. Review of his previous records show that his baseline creatinine appears to be around 1.7 to 1.8. He was just recently discharged from the hospital from admission of for acute congestive heart failure exacerbation. It was noted that his hemoglobin A1c was 5.7 and on previous hospitalization initial medication regimen indicated he was on Metformin as well as glipizide. He was instructed at discharge to stop taking his Metformin but continue with the glipizide. The patient notes that in the last several days he has been off his medication regimen and feels like he may have taken his glipizide a couple of times in the previous 24 hours. Given the inability to continue to maintain a blood sugar without significant assistance and worsening renal function, the patient is now going to be admitted to the medical/surgical floor for continuation of treatment and further evaluation. PAST MEDICAL HISTORY: 1, Diabetes mellitus type 2 on oral therapy that included initially Metformin and Glucotrol, only currently taking Glucotrol since previous discharge. 2. History of Streptococcus pneumonia in 2008 requiring hospitalization and intubation.. 3. History of elevated cholesterol. 4. Chronic obstructive pulmonary disease. 5. History of myocardial infarction. 6. Congestive heart failure, chronic systolic diastolic with last echocardiogram on 04/06/16 showing an ejection fraction of approximately 40 to 45%. 7. History of thrombocytopenia with mild splenomegaly noted on 04/06/16. 8. History of restless leg syndrome. 9. Hypertension. 10. Hypothyroidism on supplementation with normal TSH on last admission. 11. Dual chamber pacemaker placement. PAST SURGICAL HISTORY: 1. Appendectomy. 2. Multiple laminectomies; to lower back. . CURRENT MEDICATIONS: 1. Glucotrol 5 mg daily. 2. BuSpar 10 mg at bedtime. 3. Dyazide 25/375.5 daily. 4. Tramadol 50 mg daily p.r.n. 5. Spiriva inhaler 1 puff daily. 6. Ropinirole 4 mg at bedtime. 7. Potassium chloride 20 mEq daily. 8. Niacin 1000 mg at bedtime. 9. Niacin 500 mg in the morning. 10. Metoprolol 75 mg b.i.d. 11. Lisinopril 5 mg daily. 12. Synthroid 75 mcg daily. 13. Ibuprofen 200 mg every 4 hours p.r.n. pain. 14. Hydroxyzine Pamoate 100 mg at bedtime. 15. Neurontin 299 mg 3 times a day. 16. Lasix 80 mg every morning. 17. Fluoxetine 40 mg daily. 18. Vitamin D3, 1000 U daily. 19. Symbicort inhaler 160/4.5, 2 puffs daily b.i.d. 20. Albuterol inhaler 90 mcg every 6 hours as needed for shortness of breath. ALLERGIES: COUMADIN CAUSES A RASH FAMILY HISTORY: Significant heart disease, cancer, strokes, diabetes. 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 He has worked in the [employer] for many years. He is a former smoker but stopped smoking 5 years previously. He denies any alcohol or illicit drug use. REVIEW OF SYSTEMS: CONSTITUTIONAL: Patient notes that he has had a significant weight loss since last summer of over 300 pounds. He denies any significant fevers or chills. HEENT: No hearing or visual disturbances. RESPIRATORY: He does have some shortness of breath with exertion. No significant cough, no hemoptysis. He has a recent diagnosis of congestive heart failure. CARDIOVASCULAR: Denies any chest pains, palpitations, has had a syncopal episode contributed to low blood sugar. He has a history of congestive heart failure with last echocardiogram showing to be 40 to 45% with significant lower extremity edema on previous occasions but controlled with MARIE hose and Lasix. GASTROINTESTINAL: Denies nausea, vomiting, diarrhea. GENITOURINARY: No dysuria or increased frequency or urinary symptoms. NEUROLOGICAL: Positive for syncopal episode contributed to low blood sugar but denies any focal weaknesses. PHYSICAL EXAMINATION: VITAL SIGNS: Temperature 94.6, pulse 64, blood pressure 105/50, respirations 16 , saturating 93% on room air. Admission weight 93.8 kg which is down from previous admission of 108 kg. GENERAL: Patient is alert, eating a sandwich, appears to be in no acute distress. He is quite pleasant. HEENT: Tympanic membranes clear bilaterally. Oropharynx is pink and moist without lesions,. NECK: No jugular venous distention. CHEST: Lungs are clear to auscultation without any rhonchi, wheezing or rales , just only slightly diminished towards the bases. CARDIOVASCULAR: Regular rate and rhythm with no appreciable murmurs, rubs, or gallops. ABDOMEN: Soft, non-tender, positive bowel sounds. No organomegaly noted. EXTREMITIES: No cyanosis, clubbing, or edema. There is notable discoloration to the skin from chronic edema bilaterally with no edema as he wears MARIE hose as previous admission. NEUROLOGIC: Alert and oriented x3. Cranial nerves II through XII grossly intact. Facial features are symmetric. Extraocular movements within normal limits. There is no nystagmus, no notable localizing or focalizing neuromotor deficits. LABORATORY: CBC shows a white count of 5.5, hemoglobin 11.7, hematocrit 35.8, platelet count decreased to 43,000 which is chronic for the patient. Differential did show a left shift. Coagulation studies showed a normal PT/ PTT. Chemistries on admission showed a sodium of 138, potassium 5.7, initial glucose 104 which dropped to a low of 43 during admission and at time of admission to the medical/surgical floor, blood sugar was 42. Serum osmolality 287, BUN 53, creatinine 2.73, liver functions showed to be within normal limits. He had an elevated BNP of 1540 with troponin less than 0.02. TSH 2.35. Urinalysis did show a trace of blood on dipstick, otherwise was within normal limits. Toxicology screen was negative for all substances tested. MICROBIOLOGY: No microbiology specimens submitted. Chest x-ray in the Emergency Department and per radiology interpretation showed no acute cardiopulmonary disease. No mention of pulmonary edema, stable pacemaker, ICD. CT of the head without contrast per radiology interpretation showed no evidence of acute traumatic intracranial injuries, no intracranial hemorrhage. EKG showed atrial ventricular paced rhythm. ASSESSMENT: 1. Syncopal episode likely contributed to the hypoglycemic episode, again, with the patient having a dual chamber pacemaker in place with no mention of complications within the last several days. 2. Hypoglycemic event possibly contributing to the syncopal episode with the patient possibly taking excessive Glucotrol in the last 24 hours. 3. Chronic congestive heart failure, diastolic systolic dysfunction with last echocardiogram on 04/13/16 showing 40 to 45% ejection fraction with recent exacerbation but stable on admission. 4. Hypothyroidism on supplementation. 5. Coronary artery disease. 6. History of chronic obstructive pulmonary disease in a chronic smoker, having stopped smoking 5 years previously. 7. Renal failure, probably acute, probably acute possibly prerenal azotemia from multiple diuretics. 8. Electrolyte imbalance, moderate hypokalemia likely secondary to medications to include Maxzide as well as worsening renal function. 9. Thrombocytopenia with documentation of hypersplenism on last admission by sonogram. 10. Diabetes mellitus type 2 having previously been on Metformin, Glucotrol but last hemoglobin A1c in the last month being 5.7% with patient being taken off Metformin with current episode of hypoglycemia. PLAN: The patient will be admitted to the medical/surgical floor for continued treatment and evaluation and placed on telemetry given that he has a mild hyperkalemia. He was given 1 amp of bicarb in the Emergency Department that was followed up with D5 normal saline with 1 amp of sodium bicarbonate running at a rate of 100 cc an hour. This fluid regimen will be continued as he does have significant congestive heart failure in attempts to normalize his fluid status and assist in improving renal function. Will plan to hold his Maxzide in his medication regimen as well as Glucotrol given that he has significant hyperkalemia and multiple episodes of hypoglycemia. He will be on a sliding scale ac and hs with close monitoring blood sugars. We will start him on DVT prophylaxis with MARIE hose, early ambulation and hold Lovenox given his thrombocytopenia. Will continue with studies of his urine with close monitoring with repeat CBC and CMP in the morning. Anticipate length of stay to be 2 to 3 days pending stabilization of his blood sugar. Until the, we will continue to monitor the patient closely and treat appropriately. #[id number] [facility]
--- NOTE | 2016-05-09 21:48 | RAD ---
EXAM DESCRIPTION: Chest,1 View CLINICAL HISTORY: 66 years, Male, chf COMPARISON: Chest x-ray dated 04/17/2016. FINDINGS: A single frontal chest radiograph was performed. Stable positioning of the pacemaker with AICD. Leads are unchanged in location with the RIGHT atrial lead terminating more medially than expected, stable. The cardiac silhouette remains enlarged but the interstitial thickening and peribronchial cuffing has resolved since the prior study. No pulmonary edema is detected. The lungs are well expanded and clear. The costophrenic sulci are sharp. The hilar regions, trachea, soft tissues and bony structures are unremarkable. IMPRESSION: No acute cardiopulmonary disease. Cardiomegaly without pulmonary edema. Stable location of the these pacemaker and AICD leads. It is difficult to determine which leads are active but the RIGHT atrial lead terminates more medially located than normally seen. This appearance is stable. Electronically signed by: Sharon Sam MD 05/09/2016 9:47 PM CDT
[2016-05-09] MEDS ORDERED: traMADol HCL 50 MG TAB PO PRN (22:27)
[2016-05-09] MEDS ORDERED: METOPROLOL TARTRATE 50 MG TAB PO SCH (22:30)
[2016-05-09] MEDS ORDERED: DEXTROSE 50% 25 GM/50 ML SYG IV PRN (22:33)
[2016-05-09] MEDS ORDERED: ACETAMINOPHEN SUPPOSITORY 650 MG PR PRN (22:33)
[2016-05-09] MEDS ORDERED: SODIUM CHLORIDE 0.9% (FLUSH) 10 ML SYG IV PRN (22:33)
[2016-05-09] MEDS ORDERED: GLUCAGON INJ 1 MG VIAL SUBCU PRN (22:33)
[2016-05-09] MEDS ORDERED: IV SET AND CAP CHANGE INJ INJ SCH (23:00)
[2016-05-09] MEDS ORDERED: METOPROLOL TARTRATE 25 MG TAB ONE (23:45)
[2016-05-10] MEDS ORDERED: hydrOXYzine PAMOATE 25 MG CAP ONE
[2016-05-10] MEDS: GABAPENTIN 100 MG CAP PO SCH ×4 (00:07→21:11)
[2016-05-10] MEDS: BUDESONIDE/FORMOTEROL 160/4.5 60 PUFF/6 GM INH INH SCH ×3 (00:35→20:51)
[2016-05-10] MEDS ORDERED: CHOLECALCIFEROL 2,000 IU TAB PO ONE (07:34)
[2016-05-10] MEDS: FLUoxetine HCL 20 MG CAP PO SCH (08:48)
[2016-05-10] MEDS: CHOLECALCIFEROL 2,000 IU TAB PO SCH (08:48)
[2016-05-10] MEDS: FUROSEMIDE 40 MG TAB PO SCH (08:49)
[2016-05-10] MEDS: LISINOPRIL 5 MG TAB PO SCH (08:49)
[2016-05-10] MEDS: LEVOTHYROXINE SODIUM 0.075 MG TAB PO SCH (08:51)
[2016-05-10] MEDS: INSULIN LISPRO 100 UNITS/ML PEN SUBCU SCH ×4 (08:56→21:30)
[2016-05-10] MEDS: TIOTROPIUM INHALER INH SCH (09:21)
[2016-05-10] MEDS ORDERED: DEX 5% W/NACL 0.45% 1000ML 1,000 ML IVS ONE (11:10)
[2016-05-10] MEDS ORDERED: SODIUM BICARBONATE VIAL 50 MEQ/50 ML VIAL ONE (11:11)
[2016-05-10] MEDS: DEX 5% IVS PRN (13:11)
[2016-05-10] MEDS: NACL 0.45% IVS PRN (13:11)
[2016-05-10] MEDS: SODIUM BICARBONATE IVS PRN (13:11)
[2016-05-10] MEDS: NIACIN 500 MG PO SCH (14:33)
[2016-05-10] MEDS: METOPROLOL TARTRATE 50 MG TAB PO SCH (17:18)
--- NOTE | 2016-05-10 18:16 | PN ---
DATE: 05/10/16 SUPERVISING PHYSICIAN: Jimmy García M.D. SUBJECTIVE: The patient is resting. His sugars have been better controlled through the night with diet and have stabilized. He has had no nausea or vomiting. No chest pains. OBJECTIVE: VITAL SIGNS: Temperature 98.5, pulse 58, blood pressure 100.51, respirations 18, O2 sat 95% on room air. I's and O's are not available as output has not been measured. GENERAL: The patient is alert and oriented times three. CHEST: Clear to auscultation bilaterally. HEART: Regular rate and rhythm. ABDOMEN: Soft, non-tender. Positive bowel sounds. EXTREMITIES: No clubbing, cyanosis or edema. MARIE hose are in place. NEUROLOGIC: He is alert and oriented times three. LABORATORY: White count is 5.5, hemoglobin 9.7, hematocrit 29.5, platelet count 43,000. Differential shows to be within normal limits now. Chemistries show potassium 5.5 compared to admission of 5.7, BUN has improved somewhat from 53 to 50 as well as creatinine has gone down to 2.28. Glucose has been 42 to 101. ASSESSMENT: 1. Syncopal episode likely contributed to by hypoglycemic event with the patient having a dual chamber pacemaker placed with no mention of complications within the last several days. 2. Hypoglycemia contributing to syncopal episode with the patient possibly taking excessive Glucotrol in the last 24 hours prior to admission now showing stabilization of blood sugars. 3. Chronic congestive heart failure, diastolic/systolic dysfunction with last echocardiogram on 04/13/16 showing 40 to 45% ejection fraction with recent exacerbation in the last week, but stable on current admission. 4. Hypothyroidism now on supplementation. 5. Coronary artery disease. 6. History of chronic obstructive pulmonary disease in a chronic smoker having stopped smoking 5 years previously. 7. Renal failure probably prerenal azotemia from multiple diuretics and some mild dehydration. 8. Electrolyte imbalance with moderate hypokalemia likely secondary to medications including Maxzide as well as some worsening renal function. 9. Thrombocytopenia with documentation of hypersplenism on last admission by sonogram. 10. Diabetes mellitus type 2 having previously been on Metformin, Glucotrol but last hemoglobin A1c in the last month being 5.7% with patient being taken recently off Metformin but currently continues to take Glucotrol which possibly could have contributed to the hypoglycemic event. PLAN: The patient was given a liter of D5 and a half normal saline with 50 of sodium bicarb initially in the E. R. This was completed. Additional fluids will be given to include D5 and a half with 75 mEq of sodium bicarbonate with close monitoring of his BMP. He does have MARIE hose in place and has actually been ambulating very well. Will continue to monitor the patient closely. Anticipate discharge tomorrow and allow him to further stabilize his blood sugar as well as assist in improving his renal function with some mild gentle alkalinization and additional fluid. Until then, will continue to monitor the patient closely and treat appropriately. #[id number] [facility]
[2016-05-10] MEDS ORDERED: NON-FORMULARY MEDICATION 1 EA MIS (Ropinirole Hydrochloride [Ropinirole Hcl] 4 MG) PO SCH (21:00)
[2016-05-10] MEDS ORDERED: busPIRone HCL 5 MG TAB PO SCH (21:00)
[2016-05-10] MEDS ORDERED: hydrOXYzine PAMOATE 25 MG CAP PO SCH (21:00)
[2016-05-10] MEDS ORDERED: HYDROXYZINE PAMOATE 100 MG PO SCH (21:00)
[2016-05-10] MEDS ORDERED: NIACIN 1000 MG PO SCH (21:00)
--- NOTE | 2016-05-10 21:11 | PCM.CORE ---
Physician DVT/VTE - Contraindications Medication Contraindication: Medical Contraindication - low plt count - Nurse DVT Assessment & Total Each Risk Factor Represents 2 Points: Age 60-74 Each Risk Factor Represents 1 Point: Hx of smoking past year Each Risk Factor is 1 Point: Serious Lung disease (pnemonia <1month, COPD, emphysema,etc) DVT Assessment Score: 4 - 5 or more Very High Risk Treatments: Early Ambulation *, Sequential Compression Device
[2016-05-10] MEDS ORDERED: TEMAZEPAM 15 MG CAP PO PRN (23:07)
[2016-05-11] MEDS ORDERED: DEX 5% W/NACL 0.45% 1000ML 1,000 ML IVS ONE (02:35)
[2016-05-11] MEDS ORDERED: SODIUM BICARBONATE VIAL 50 MEQ/50 ML VIAL ONE (02:35)
[2016-05-11] MEDS: SODIUM BICARBONATE IVS PRN (02:43)
[2016-05-11] MEDS: DEX 5% IVS PRN (02:43)
[2016-05-11] MEDS: NACL 0.45% IVS PRN (02:43)
[2016-05-11] MEDS: LEVOTHYROXINE SODIUM 0.075 MG TAB PO SCH (06:17)
[2016-05-11 06:28] VITALS: BP 97/55; TEMP 97.5
[2016-05-11] MEDS: INSULIN LISPRO 100 UNITS/ML PEN SUBCU SCH (08:11)
[2016-05-11] MEDS: METOPROLOL TARTRATE 50 MG TAB PO SCH (08:11)
[2016-05-11] MEDS: FLUoxetine HCL 20 MG CAP PO SCH (09:18)
[2016-05-11] MEDS: FUROSEMIDE 40 MG TAB PO SCH (09:18)
[2016-05-11] MEDS: CHOLECALCIFEROL 2,000 IU TAB PO SCH (09:18)
[2016-05-11] MEDS: LISINOPRIL 5 MG TAB PO SCH (09:18)
[2016-05-11] MEDS: GABAPENTIN 100 MG CAP PO SCH (09:19)
[2016-05-11] MEDS: NIACIN 500 MG PO SCH (09:19)
[2016-05-11] MEDS: TIOTROPIUM INHALER INH SCH (09:56)
[2016-05-11] MEDS: BUDESONIDE/FORMOTEROL 160/4.5 60 PUFF/6 GM INH INH SCH (09:56)
[2016-05-11 09:57] VITALS: O2SAT 97
--- NOTE | 2016-05-11 13:38 | DS ---
DISCHARGE DIAGNOSIS: 1. Acute syncopal episode, probably secondary to symptomatic hypoglycemic event , requiring observation and close telemetry followup, again, because of underlying consider condition as well. 2. Severe hypoglycemia, contributing to altered level of consciousness noted to be present even with reduction of oral hypoglycemic agents in an attempt to prevent further kidney problems and showing the need for further adjustment of medications. 3. History of chronic congestive heart failure involving diastolic and systolic dysfunction with last echocardiogram on 04/13/16 showing 40 to 45% ejection fraction, continuing on fluid restrictions. 4. History of hypothyroidism on supplementation. 5. History of Coronary artery disease. 6. History of chronic obstructive pulmonary disease in a chronic smoker, having stopped smoking about 5 years previously. 7. Chronic renal failure with prerenal azotemia, aggravated by multiple diuresis and mild dehydration, showing some improvement, though still with an elevated baseline creatinine, BUN noted. 8. Hyperkalemia, possibly aggravated by potassium supplementation along with chronic renal insufficiency state. 9. Chronic thrombocytopenia with documentation of hypersplenism on last admission noted on sonogram. 10. Diabetes mellitus, type 2, having previously been on metformin and Glucotrol with the metformin stopped because of renal injury, now on Glucotrol and that also being adjusted down with a fairly normal hemoglobin A1c of 5.7% and close followup necessary because of the severity of the hypoglycemic event leading to the patient's current admission to the hospital. HISTORY OF PRESENT ILLNESS: This 66-year-old, white male was admitted to the hospital from the Emergency Room because of significant altered level of consciousness. He apparently was found on the floor and was noted to have a very low sugar into the 30s requiring 1 amp of D50 with the sugar still being in the 40s even after the treatment. In the Emergency Room, he showed slow improvement. His potassium was also elevated. His kidney function was also slightly decreased, showing some improvement as the treatment course continued. He was admitted to the hospital for adjustment of medication and for special observation for reasons of altered level of consciousness with further telemetry and readjustment of medications for the congestive heart failure and fluid consumption. LABORATORY: White count was 4.6 on daily with hemoglobin dropping with gentle hydration from 11.7 down to 9.5. Significant thrombocytopenia of 34,000 was noted at the time of discharge and will require hematological followup. INR 0.99. Chemistries showed BUN 53 down to 50, creatinine 2.73 down to 2.29. Glucose initially 43 and was up to 160 fasting on the day of discharge. Beta natriuretic peptide with a history of congestive heart failure was 1540 while troponin was 0. TSH normal at 2.35. Urinalysis showed a trace of blood and no drugs noted on urine drug screen. No cultures obtained. Head CT was performed in the Emergency Room and showed no evidence of an acute traumatic intracranial injury status post syncopal episode with no intracranial hemorrhage evident. Chest x-ray performed in the Emergency Room showed pacemaker wires with chest showing cardiomegaly without pulmonary edema. Chronic obstructive pulmonary disease evident. HOSPITAL COURSE: The patient was feeling much improved on the morning of discharge and was ready for continued followup in the outpatient department. PLAN: The patient was discharged to have further followup in the outpatient department. His primary care provider is in the [facility] in [place] and we will attempt to see if he can be followed up also with Dr. Mccauley in the [facility] who will also work with the [facility] in [place] because of its distance. Followup with Dr. Mccauley in a week with a repeat BNP and CBC to check on platelets, glucose, electrolytes and kidney function. He is to be scheduled for a sleep study. He may benefit from BiPAP at bedtime. Followup at the [facility] in [place] as well. Limit p.o. fluids to 1800 mL instead of 1500 mL per 24 hours. Followup with a hematology clinic for the very low platelets and a history of hypersplenism. Continue with oxygen at bedtime. Decrease glipizide to only 2.5 mg q.a.m. Stay on a diabetic diet and be as active as possible. Hold potassium medicines until re-started by Dr. Mccauley after laboratory reevaluation. Adjust Lasix depending up on the edema state. Check stools for blood and bring the cards to Dr. Mccauley's office for development. Follow glucose fingersticks regularly. Return if not improving. #[id number] [facility]
== END 2016-05-11 11:35 | disposition home or self-care (01) | DRG 683 ==
LOC: ER 17:32 → MS 21:15
PROVIDERS: ADMIT Nurse Practitioner Family; ATTEND Emergency Medicine
DX: N17.9 Acute kidney failure, unspecified (principal); I50.42 Chronic combined systolic (congestive) and diastolic (congestive) heart failure; I13.0 Hypertensive heart and chronic kidney disease with heart failure and stage 1 through stage 4 chronic kidney disease, or unspecified chronic kidney disease; E11.649 Type 2 diabetes mellitus with hypoglycemia without coma; E03.9 Hypothyroidism, unspecified; I25.10 Atherosclerotic heart disease of native coronary artery without angina pectoris; J44.9 Chronic obstructive pulmonary disease, unspecified; N18.9 Chronic kidney disease, unspecified; E86.0 Dehydration; E87.5 Hyperkalemia; E87.6 Hypokalemia; D73.1 Hypersplenism; D69.59 Other secondary thrombocytopenia; E78.00 Pure hypercholesterolemia, unspecified; I25.2 Old myocardial infarction; G25.81 Restless legs syndrome; Z87.891 Personal history of nicotine dependence; Z95.0 Presence of cardiac pacemaker; Z79.84 Long term (current) use of oral hypoglycemic drugs; Z79.1 Long term (current) use of non-steroidal anti-inflammatories (NSAID); Z79.51 Long term (current) use of inhaled steroids; Z79.899 Other long term (current) drug therapy; Z88.8 Allergy status to other drugs, medicaments and biological substances

== ENCOUNTER 2016-07-19 04:46 | Inpatient (IN) | payer OTHER ==
[2016-07-19] MEDS ORDERED: SODIUM CHLORIDE 0.9% 1000ML 1,000 ML IVS ONE (05:09)
--- NOTE | 2016-07-19 05:13 | ED.PDOC ---
History of Present Illness - General Chief Complaint: Respiratory Problem Stated Complaint: shortness of breath Time Seen by Provider: 07/19/16 05:06 Source: patient, RN notes reviewed, Vital Signs reviewed, family Additional Information: Pt reports he is short of breath and has been getting more difficult in last two nights Pt has hx COPD and end-stage CHF. "I need two big bottles of Lasix, thats my cure" Pt is ambulating, restless, holding his distended abdomen and complaining of cramping and pain in his legs/feet. Patient has his at the bedside. Patient understands that his heart, lungs, and kidneys have chronic disease that are nearing end-stage. Patient does not want to be intubated or resusitated, he is DNR/DNI and wants to remain comfortable. He states he ran out of Oxycontin recently and that has been helping his chronic pain. Pt is asking for medicin for his pain. Pt initially purse lip breathing upon arrival with diffuse insp/exp wheezes. He states he has been requiring extra pillows to sit up and breath with ease. - History of Present Illness Timing/Duration: unsure Severity: moderate - to severe Improving Factors: nothing Worsening Factors: movement Associated Symptoms: chest pain, shortness of breath, weakness, other - abdominal and leg pain Allergies/Adverse Reactions: Allergies Warfarin [From Coumadin] Allergy (Verified 07/19/16 04:55) Home Medications: Ambulatory Orders Albuterol Sulfate [Ventolin Hfa] 90 mcg IN Q6HR PRN 04/13/16 Budes/Formoterol INH 160/4.5 [Symbicort Inhaler 160/4.5] 2 puff INH BID Cholecalciferol [Vitamin D3] 1,000 unit PO DAILY 04/13/16 Fluoxetine HCl 40 mg PO QAM 04/13/16 Gabapentin [Neurontin] 100 mg PO TID 04/13/16 Hydroxyzine Pamoate 100 mg PO BEDTIME 04/13/16 Ibuprofen 200 mg PO Q4HR PRN 04/13/16 Levothyroxine Sodium [Synthroid] 75 mcg PO DAILY 04/13/16 Lisinopril 5 mg PO DAILY 04/13/16 Metoprolol Tartrate 100 mg PO DAILY 04/13/16 Niacin [Niacin Td] 1,000 mg PO BEDTIME 04/13/16 Niacin [Niacin Td] 500 mg PO QAM 04/13/16 Ropinirole Hydrochloride [Ropinirole HCl] 4 mg PO BEDTIME 04/13/16 Tiotropium [place] Monohydrate [Spiriva Handihaler] 1 puff IN DAILY 04/13/16 Tramadol HCl 50 ea PO DAILY PRN 04/13/16 busPIRone HCL [Buspar] 5 mg PO BEDTIME 05/09/16 Omeprazole 20 mg PO DAILY 07/19/16 Potassium Chloride [K-Tab] 20 meq PO DAILY 07/19/16 Torsemide 80 mg PO BID 07/19/16 Triamterene & Hydrochlorothiaz [Triamterene/Hydrochloroth 37.5-25 mg] 1 cap PO DAILY 07/19/16 glipiZIDE [Glucotrol] 5 mg PO DAILY 07/19/16 Review of Systems - Review of Systems Constitutional: States: weakness EENTM: States: no symptoms reported Respiratory: States: see HPI, orthopnea, short of breath, wheezing Cardiology: States: see HPI, chest pain Gastrointestinal/Abdominal: States: see HPI, abdominal pain - with distention Genitourinary: States: no symptoms reported Musculoskeletal: States: see HPI Skin: States: no symptoms reported Neurological: States: no symptoms reported Endocrine: States: no symptoms reported Hematologic/Lymphatic: States: no symptoms reported Past Medical History (General) - Patient Medical History Hx Seizures: No Hx Stroke: No Hx Asthma: Yes Hx of COPD: Yes Hx Cardiac Disorders: Yes - LA,Pacemaker Hx Congestive Heart Failure: Yes Hx Pacemaker: Yes Hx Hypertension: Yes Hx Diabetes: Yes Hx MRSA: No Surgical History: appendectomy, other - Vaccination History Hx Tetanus, Diphtheria Vaccination: No Hx Influenza Vaccination: Yes Hx Pneumococcal Vaccination: Yes - Social History Hx Tobacco Use: Yes Hx Chewing Tobacco Use: No Hx Alcohol Use: No Hx Substance Use: No Hx Substance Use Treatment: No Hx Depression: No Feels Threatened In Home Enviroment: No Feels Threatened In a Relationship: No Hx Physical Abuse: No Hx Emotional Abuse: No Hx Suspected Abuse: No - Female History Patient : No Family Medical History - Family History Mother Family History: Unknown Hx Cardiac Disease: Yes - brother Father Family History: Unknown Brother Living Status: Still Living Hx Family Asthma: No Hx Family Congestive Heart Failure: Yes Hx Family Hypertension: Yes Hx Family Stroke: No Hx Cardiac Disease: Yes Hx Family Diabetes: No Hx Family Cancer: No Physical Exam - Physical Exam General Appearance: Ill Appearing, Restless Eye Exam: bilateral normal Ears, Nose, Throat: hearing grossly normal, normal ENT inspection Neck: non-tender, full range of motion, supple Respiratory: respiratory distress, accessory muscle use - with pursed lip breathing, wheezing - diffuse insp/exp. Cardiovascular/Chest: regular rate, rhythm Gastrointestinal/Abdominal: distended Extremity: pedal edema - 2+ bilateral, swelling - 2+ edema to the knees Neurologic: shop superintendent II-XII nml as tested, no motor/sensory deficits, alert, oriented x 3 Skin Exam: other - chronic vascular deficiency findings with hemosiderin staining of dependent lower extremities Progress - Progress Progress: 07/19/16 06:18 I believe this patient would benefit from Hospice Care given his end stage condition. I believe he is at risk of passing away within 6 months. The plan initially is to transport him to a facility with more robust services such as [facility] in order to stabilize the patient's condition and help to initiate Hospice Care for patient and his family. I believe this patient has too many co-morbidities at end stage for our hospital to support. I spoke with Hospitalist Georges (THERESA) who recommended I contact Hospice for a consult through the ER. 07/19/16 06:53 Family is calling [facility], and [facility] services to decide/ determine which organization to come and evaluate Pt in ER. Pt stable s/p Morphine 4 mg IV x 2 as well as Albuterol 5 mg Neb x 1 and Solu-Medrol 125 mg IV x 1, NTG 0.4 mg SL x 1, and increase in home supplemental oxygen from 2 L NC to 4 L NC. 07/19/16 06:[address] handed over to Dr. Desouza. 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 Copy, Patient Portal Self Enrollment Home Medications: Ambulatory Orders Albuterol Sulfate [Ventolin Hfa] 90 mcg IN Q6HR PRN 04/13/16 Budes/Formoterol INH 160/4.5 [Symbicort Inhaler 160/4.5] 2 puff INH BID Cholecalciferol [Vitamin D3] 1,000 unit PO DAILY 04/13/16 Fluoxetine HCl 40 mg PO QAM 04/13/16 Gabapentin [Neurontin] 100 mg PO TID 04/13/16 Hydroxyzine Pamoate 100 mg PO BEDTIME 04/13/16 Ibuprofen 200 mg PO Q4HR PRN 04/13/16 Levothyroxine Sodium [Synthroid] 75 mcg PO DAILY 04/13/16 Lisinopril 5 mg PO DAILY 04/13/16 Metoprolol Tartrate 100 mg PO DAILY 04/13/16 Niacin [Niacin Td] 1,000 mg PO BEDTIME 04/13/16 Niacin [Niacin Td] 500 mg PO QAM 04/13/16 Ropinirole Hydrochloride [Ropinirole HCl] 4 mg PO BEDTIME 04/13/16 Tiotropium [place] Monohydrate [Spiriva Handihaler] 1 puff IN DAILY 04/13/16 Tramadol HCl 50 ea PO DAILY PRN 04/13/16 busPIRone HCL [Buspar] 5 mg PO BEDTIME 05/09/16 Omeprazole 20 mg PO DAILY 07/19/16 Potassium Chloride [K-Tab] 20 meq PO DAILY 07/19/16 Torsemide 80 mg PO BID 07/19/16 Triamterene & Hydrochlorothiaz [Triamterene/Hydrochloroth 37.5-25 mg] 1 cap PO DAILY 07/19/16 glipiZIDE [Glucotrol] 5 mg PO DAILY 07/19/16
[2016-07-19] MEDS ORDERED: methylPREDNISolone SODIUM SUC 125 MG/2 ML VIAL IV ONE (05:24)
[2016-07-19] MEDS ORDERED: ALBUTEROL SULFATE 2.5 MG/3 ML VIAL NEB ONE (05:25)
[2016-07-19] MEDS ORDERED: ALBUTEROL SULFATE INHALATION 5 MG/ML 20 ML BTTL NEB ONE (05:27)
[2016-07-19] MEDS ORDERED: FUROSEMIDE INJ 40 MG/4 ML VIAL IV ONE ×3 (05:41→10:20)
[2016-07-19] MEDS ORDERED: SODIUM CHLORIDE 0.9% 1000ML 500 ML IVS ONE (05:42)
[2016-07-19] MEDS ORDERED: MORPHINE SULFATE INJ 10 MG/ML VIAL IV PRN ×2 (05:55→06:10)
--- NOTE | 2016-07-19 06:01 | RAD ---
Procedure: XR CHEST 1 VIEW Exam Date: 07/19/2016 Ordering Provider: Rai Werner Clinical Indication: SOB h/o COPD and CHF Comparison: 05/09/2016 Findings: Left subclavian AICD with leads in appropriate position. Cardiac silhouette: Enlarged Pulmonary vasculature : Prominent without ankit pulmonary edema Mediastinal contour: Normal Aortic contour: Normal Focal lung consolidation: Left basilar atelectasis and/or infiltrate. Pleural effusion: No large pleural effusions. Pneumothorax: None Acute bony or soft tissue abnormality: None Impression: 1. Cardiomegaly. 2. Left basilar atelectasis and/or infiltrate. Electronically signed by: Roshan Wolff MD 07/19/2016 6:02 AM CDT
[2016-07-19] MEDS ORDERED: IPRATROPIUM/ALBUTEROL 3 ML VIAL NEB ONE (10:42)
--- NOTE | 2016-07-19 12:36 | HP ---
SUPERVISING PHYSICIAN: Jimmy García M.D. CHIEF COMPLAINT: Shortness of breath. HISTORY OF PRESENT ILLNESS: Mr. Hernandes is a male patient 66 years of age with a longstanding history of renal insufficiency and congestive heart failure. He is a patient under the [facility] system and obtains all of his medications and medical care at those facilities. He presented to the Emergency Room today because he had had over a 50 pound weight gain within the last 2 weeks and was having significant difficulty breathing requiring him to sit up in a chair to even be able to relax. He has not been able to sleep for the last 3 days secondary to worsening dyspnea. He has been on Lasix in the past but has recently been switched to Torsemide as the Lasix has no longer been working. He also has a history of chronic pain management with being on Oxy Contin which he recently ran out of due to logistics reasons. On arrival to the Emergency Department, the patient was pursed lip breathing with diffuse inspiratory and expiratory wheezing. Laboratory studies completed showed the patient to have a white count of 8.1 with hemoglobin 10.7, hematocrit 32.1 with platelet count of 54,000. Differential showed no left shift. Chemistries showed hyponatremia with sodium of 129. Renal function showed BUN 44, creatinine 2.29 with serum osmolality 271, glucose 119. Liver functions showed just a slightly elevated bilirubin, otherwise was within normal limits. CPK was elevated at 512 with troponin of 0.02. The patient was denying any chest pains. BNP completed showed to be elevated at 1250. Radiographic studies of the chest x-ray were completed including a single view of the chest and per radiology interpretation there was note of cardiomegaly with left basilar atelectasis and/or infiltrative process. Initial vital signs showed the patient to be satting 90% on room air initially with respiratory rate significant at 26, blood pressure 112/73. He was afebrile with a heart rate of 82. Dr. Werner initially saw the patient in the E. R. and called the hospital myself in regards to request for hospice care as he felt the patient was end stage congestive heart failure. The patient just wanted to have fluid pulled off and go home. At that point, hospice care was consulted. Ultimately after discussion between the family, they decided to go with [facility]. While in the Emergency Department, he was given a total of 120 of Lasix with well over 1- 1/2 liters of fluid diuresed with the patient showing improvement in his condition with vital signs stabilizing to where he was satting 96% at one point on room air. Blood pressure 130/71, respirations 18. Dr. Dseouza, who took over care of the patient, notified me that the patient was wanting to be admitted to stabilize his condition and assist with his diuresis after which he wishes to go home on hospice care for end stage congestive heart failure. The patient is now going to be admitted to the Medical/Surgical floor for continuation of treatment and further evaluation. He is admitted in stable condition. PAST MEDICAL HISTORY: 1. Congestive heart failure, chronic, systolic/diastolic with last echocardiogram noted to be on 04/06/16 with an ejection fraction of approximately 40%. 2. Diabetes mellitus type 2 on oral therapy. 3. History of Streptococcus pneumoniae in 2008. 4. Chronic obstructive pulmonary disease. 5. History of previous myocardial infarctions. 6. History of thrombocytopenia with splenomegaly that has been noted since 03/2016. 7. History of restless leg syndrome. 8. Hypertension. 9. Hypothyroidism on supplementation. 10. Dual chamber pacemaker placement. PAST SURGICAL HISTORY: 1. Appendectomy. 2. Multiple laminectomies to lower back. 3. Dual chamber pacemaker placement. CURRENT MEDICATIONS: 1. Oxycodone with Tylenol 1 tablet every 6 hours p.r.n. 2. Cyproheptadine 4 mg at bedtime as needed. 3. Imdur 30 mg daily. 4. Abilify 5 mg daily. 5. Nitrostat sublingual as needed. 6. Lipitor 40 mg at bedtime. 7. Aspirin 325 mg daily. 8. Atarax 50 mg at bedtime as needed. 9. Glucotrol 2.5 mg b.i.d. 10. BuSpar 5 mg twice daily. 11. Metformin 500 mg twice daily. 12. Furosemide 75 mg twice daily. 13. Neurontin 300 mg 3 times a day. 14. Tramadol 1 daily p.r.n. 15. Metoprolol tartrate 75 mg b.i.d. 16. Niacin at bedtime 1,000 mg. 17. Niacin 500 mg daily. 18. Triamterene/Hydrochlorothiazide 37.5/25 one daily. 19. Omeprazole 20 mg daily. 20. Potassium chloride 20 mEq daily. 21. Symbicort inhaler 160/4.5 two puffs inhaled twice daily. 22. Ventolin inhaler 90 mcg inhaled every 6 hours as needed. 23. Vitamin D3 1,000 units daily. 24. Fluoxetine 40 mg at bedtime. 25. Ropinirole 4 mg at bedtime. 26. Ibuprofen 200 mg every 4 hours as needed. 27. Lisinopril 5 mg daily. 28. Synthroid 75 mcg daily. 29. Spiriva handihaler 1 puff daily. ALLERGIES: COUMADIN CAUSES A RASH. FAMILY HISTORY: Significant for heart disease, cancer, strokes and diabetes. 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 He has worked in the [employer] for many years and he is a former smoker but stopped smoking 5 years previous. He denies any alcohol or illicit drug use. REVIEW OF SYSTEMS: CONSTITUTIONAL: Notes that he has had a significant weight gain in the last 2 weeks of over 15 to 20 pounds. He denies any fever or chills. HEENT: Denies any hearing or visual disturbances. RESPIRATORY: As noted in the History of Present Illness. Severe dyspnea with any exertional effort. Denies any significant cough or hemoptysis. CARDIOVASCULAR: As noted in the History of Present Illness. History of congestive heart failure. Denies any chest pains, palpitations or any recent syncopal episodes. GASTROINTESTINAL: Denies any nausea, vomiting or diarrhea but notes he has had some constipation. GENITOURINARY: No dysuria or increased frequency other than secondary to his diuretics or other urinary symptoms. NEUROLOGIC: No reported syncopal episodes or any other lateralizing or focalizing focal weaknesses. PHYSICAL EXAMINATION: VITAL SIGNS: On admission to the Medical/Surgical floor, temperature 96.3, heart rate 60, blood pressure 110/68, respirations 16, O2 sat 94% on nasal cannula at 4 liters at rest. Initial vital signs in the Emergency Department showed hypoxia with O2 saturation of 90% and 89% on nasal cannula initially at 2 liters with him being significant at 26 but showing improvement after initiation of Lasix. Admission weight 105.5 kg which is significantly increased looking at previous records. On 05/09/16, he weighed 93.8 kg. He does report that he has gained almost 15 to 20 pounds in the last week or 2. GENERAL: On admission to the Medical/Surgical floor is in no acute obvious distress. He is resting, very pleasant. He says he feels much better. HEENT: Tympanic membranes are clear bilaterally. Oropharynx is pink and moist without any lesions. NECK: There is no jugular venous distention noted. CHEST: Lungs are without any obvious wheezing, rhonchi or rales on admission. There is no notable significant respirations. CARDIOVASCULAR: Slightly irregular rate and rhythm with no appreciable murmurs , gallops, or rubs. ABDOMEN: Obese but soft, non-tender. Positive bowel sounds. EXTREMITIES: No clubbing, cyanosis or edema. There is notable discoloration of the skin from chronic edema bilaterally, only just a trace of edema on admission to the Medical/Surgical floor. Per review of E. R. records, the patient apparently presented with 2+ bilateral edema from the knees down, but on admission this had dramatically improved. NEUROLOGIC: He is alert and oriented times three. Cranial nerves II-XII are grossly intact. Facial features are symmetrical. Extraocular movements are within normal limits. There was no nystagmus. No notable localizing or focalizing neuromotor deficits. LABORATORY: CBC on admission showed white count 8.1, hemoglobin 10.7, hematocrit 32.1, platelet count 54,000. Differential showed to be within normal limits. Chemistries showed sodium 129, potassium 3.8, BUN was elevated at 44, creatinine 2.9. Review of his last several visits this year showed creatinine baseline has been slowly elevating and looks to be stabilizing around 2.2 to 2.3. BNP on admission was 1250. Liver functions other than just slightly elevated bilirubin at 1.1 showed to be within normal limits. Magnesium 1.8, CPK 512, troponin was 0.02. Urinalysis showed to be within normal limits. RADIOLOGY: Chest x-ray in the Emergency Department per radiology interpretation showed cardiomegaly with left basilar atelectasis and/or infiltrate. ASSESSMENT: 1. Acute exacerbation of chronic congestive heart failure with with diastolic/ systolic dysfunction with last echocardiogram noted to be on 04/13/16 showing an ejection fraction of 40% with several exacerbations with within the past year. 2. History of chronic obstructive pulmonary disease in a chronic smoker having stopped 5 years previously. 3. Chronic renal failure with some prerenal azotemia likely secondary to being on multiple diuretics showing to be stable compared to previous admissions. 4. Electrolytes imbalance with hyponatremia likely secondary to diuretic administration. 5. Thrombocytopenia with documentation of hypersplenism as noted on previous admission by sonography. 6. Diabetes mellitus type 2 on Metformin and Glucotrol. PLAN: The patient will be admitted to the Medical/Surgical floor to help stabilize his exacerbation of congestive heart failure. He did have a Johnson placed in the Emergency Department and was given 120 mg of Lasix initially. This will be continued with 80 mg of Lasix every 8 hours with close monitoring of his I's and O's. Will continue with diuresis and oral restricted fluids. Will stop his Metformin due to the renal insufficiency and continue with sliding scale as well as Glipizide. Will continue SCDs for DVT prophylaxis, hold off on Lovenox secondary to the thrombocytopenia. The patient wishes to go on hospice care once he is stabilized in the hospital to be continued through [facility] which has already been arranged through the Emergency Department. Once the patient is stabilized, we will push forward with the wishes of the patient and he has made himself a DNR and DO NOT INTUBATE, and understands that he is in the end stages of his disease process. He is very pleasant. He just wishes to pull some fluid off and be able to go home on hospice. Once his medications from home have been reviewed, will resume those as appropriate. Will anticipate his length of stay to be 2 to 3 days. Will get daily weights and monitor I's and O's closely. Anticipate removing his Johnson within the next 48 hours. The patient is under the primary care of the physicians at the [facility] and actually has a followup appointment this week on Wednesday to see them. Hopefully we can discharge him prior to that and he can followup with his primary care physician at the [facility] as well as continue with hospice care as requested. Until discharge, will closely monitor the patient and treat appropriately. #[id number] [facility]
[2016-07-19] MEDS ORDERED: NITROGLYCERIN 0.4 MG 25 EA TAB SL PRN (15:25)
[2016-07-19] MEDS ORDERED: GLUCAGON INJ 1 MG VIAL SUBCU PRN (15:25)
[2016-07-19] MEDS ORDERED: DEXTROSE 50% 25 GM/50 ML SYG IV PRN (15:25)
[2016-07-19] MEDS ORDERED: IV SET AND CAP CHANGE INJ INJ SCH (15:30)
[2016-07-19] MEDS ORDERED: traMADol HCL 50 MG TAB PO PRN (15:32)
[2016-07-19] MEDS: IPRATROPIUM/ALBUTEROL 3 ML VIAL NEB SCH ×2 (16:11→20:46)
[2016-07-19] MEDS ORDERED: ACETAMINOPHEN PO PRN (18:02)
[2016-07-19] MEDS ORDERED: [UNRECOGNIZED DRUG - OTHER] PO PRN (18:02)
[2016-07-19] MEDS ORDERED: OXYCODONE PO PRN (18:02)
--- NOTE | 2016-07-19 18:10 | PCM.CORE ---
Physician DVT/VTE - Nurse DVT Assessment & Total Each Risk Factor Represents 3 Points: Medical PT with Hx of [place], CHF, Severe infection/sepsis Each Risk Factor Represents 2 Points: Age 60-74 Each Risk Factor Represents 1 Point: Medical PT at Bed Rest Each Risk Factor is 1 Point: Varicose Veins/Edema Legs DVT Assessment Score: 7 - 5 or more Very High Risk Treatments: Early Ambulation *, Sequential Compression Device Pharmacological: Enoxaparin 40mg SQ Daily
[2016-07-19] MEDS: INSULIN LISPRO 100 UNITS/ML PEN SUBCU SCH ×3 (18:16→21:08)
[2016-07-19] MEDS: FUROSEMIDE INJ 100 MG/10 ML VIAL IV SCH (18:17)
[2016-07-19] MEDS: ASPIRIN TABLET 325 MG TAB PO SCH (18:28)
[2016-07-19] MEDS ORDERED: ENOXAPARIN SODIUM 40 MG/0.4 ML SYG SUBCU SCH (18:30)
[2016-07-19] MEDS ORDERED: ENOXAPARIN SODIUM 30 MG/0.3 ML SYG SUBCU SCH (18:30)
[2016-07-19] MEDS ORDERED: BUDESONIDE/FORMOTEROL 160/4.5 60 PUFF/6 GM INH INH ONE (18:44)
[2016-07-19] MEDS: BUDESONIDE/FORMOTEROL 160/4.5 60 PUFF/6 GM INH INH SCH (20:46)
[2016-07-19] MEDS: busPIRone HCL 5 MG TAB PO SCH (20:55)
[2016-07-19] MEDS: ATORVASTATIN 20 MG TAB PO SCH (20:55)
[2016-07-19] MEDS: GABAPENTIN 300 MG CAP PO SCH (20:55)
[2016-07-19] MEDS: hydrOXYzine PAMOATE 25 MG CAP PO SCH (20:55)
[2016-07-19] MEDS: SODIUM CHLORIDE 0.9% (FLUSH) 10 ML SYG IV SCH (20:55)
[2016-07-19] MEDS: NIACIN 500 MG TAB PO SCH (20:55)
[2016-07-19] MEDS ORDERED: NIACIN 500 MG TAB PO SCH (21:00)
[2016-07-19] MEDS: MORPHINE SULFATE INJ 10 MG/ML VIAL IV PRN (23:01)
[2016-07-19] MEDS: SODIUM CHLORIDE 0.9% (FLUSH) 10 ML SYG IV PRN (23:02)
[2016-07-19] MEDS: ALBUTEROL SULFATE 2.5 MG/3 ML VIAL NEB PRN (23:10)
[2016-07-20] MEDS: ALBUTEROL SULFATE 2.5 MG/3 ML VIAL NEB PRN (04:46)
[2016-07-20] MEDS: HYDROcodone 10MG/APAP 325MG 1 EA TAB PO PRN ×2 (04:46→19:16)
[2016-07-20] MEDS: OMEPRAZOLE CAP 20 MG CAP PO SCH (05:58)
[2016-07-20] MEDS: LEVOTHYROXINE SODIUM 0.075 MG TAB PO SCH (05:58)
[2016-07-20] MEDS ORDERED: glipiZIDE 5 MG TAB PO SCH (07:00)
--- NOTE | 2016-07-20 07:03 | RAD ---
Procedure: XR CHEST 2 VIEWS Exam Date: 07/20/2016 Ordering Provider: Georges Higuera NP Clinical Indication: CHF Comparison: 07/19/2016 Findings: Left subclavian AICD with leads in appropriate position. Cardiac silhouette: Enlarged Pulmonary vasculature : Prominence of the central pulmonary vasculature and interstitium bilaterally, right greater than left. Mediastinal contour: Normal Aortic contour: Normal Focal lung consolidation: Left basilar atelectasis and/or infiltrate. Right basilar subsegmental atelectasis. Pleural effusion: Small bilateral pleural effusions. Pneumothorax: None Acute bony or soft tissue abnormality: None Impression: 1. Cardiomegaly with mild edema. 2. Left basilar atelectasis and/or infiltrate. 3. Small bilateral pleural effusions. Electronically signed by: Roshan Wolff MD 07/20/2016 7:03 AM CDT
[2016-07-20] MEDS ORDERED: ARIPiprazole 5 MG TAB ONE (07:55)
[2016-07-20] MEDS ORDERED: CHOLECALCIFEROL 2,000 IU TAB PO ONE (07:55)
[2016-07-20] MEDS ORDERED: FLUoxetine HCL 20 MG CAP ONE (07:56)
[2016-07-20] MEDS ORDERED: LISINOPRIL 5 MG TAB ONE (07:56)
[2016-07-20] MEDS ORDERED: glipiZIDE 5 MG TAB ONE (07:56)
[2016-07-20] MEDS ORDERED: ISOSORBIDE MONONITRATE (IMDUR) 30 MG TAB ONE (07:56)
[2016-07-20] MEDS: CHOLECALCIFEROL 2,000 IU TAB PO SCH (08:21)
[2016-07-20] MEDS: LISINOPRIL 5 MG TAB PO SCH (08:21)
[2016-07-20] MEDS: ISOSORBIDE MONONITRATE (IMDUR) 30 MG TAB PO SCH (08:22)
[2016-07-20] MEDS: GABAPENTIN 300 MG CAP PO SCH ×3 (08:22→20:36)
[2016-07-20] MEDS: ASPIRIN TABLET 325 MG TAB PO SCH (08:22)
[2016-07-20] MEDS: METOPROLOL TARTRATE 50 MG TAB PO SCH (08:22)
[2016-07-20] MEDS: INSULIN LISPRO 100 UNITS/ML PEN SUBCU SCH ×4 (08:22→21:42)
[2016-07-20] MEDS: ARIPiprazole 5 MG TAB PO SCH (08:22)
[2016-07-20] MEDS: FLUoxetine HCL 20 MG CAP PO SCH (08:22)
[2016-07-20] MEDS: POTASSIUM CHLORIDE 20 MEQ TAB PO SCH (08:22)
[2016-07-20] MEDS: FUROSEMIDE INJ 100 MG/10 ML VIAL IV SCH ×2 (08:23→17:11)
[2016-07-20] MEDS ORDERED: MORPHINE SULFATE INJ 10 MG/ML VIAL ONE (08:26)
[2016-07-20] MEDS: NIACIN 500 MG TAB PO SCH ×2 (08:28→20:35)
[2016-07-20] MEDS: MORPHINE SULFATE INJ 10 MG/ML VIAL IV PRN ×3 (08:29→22:08)
[2016-07-20] MEDS ORDERED: metFORMIN HCL 500 MG TAB ONE (08:47)
[2016-07-20] MEDS: metFORMIN HCL 500 MG TAB PO SCH ×2 (08:49→08:52)
[2016-07-20] MEDS ORDERED: NIACIN 500 MG TAB PO SCH (09:00)
[2016-07-20] MEDS: SODIUM CHLORIDE 0.9% (FLUSH) 10 ML SYG IV SCH ×2 (09:12→20:39)
[2016-07-20] MEDS: TIOTROPIUM INHALER INH SCH (09:13)
[2016-07-20] MEDS: BUDESONIDE/FORMOTEROL 160/4.5 60 PUFF/6 GM INH INH SCH ×2 (09:56→20:06)
[2016-07-20] MEDS ORDERED: MAGNESIUM HYDROXIDE 30 ML UD PO ONE (11:07)
[2016-07-20] MEDS: IPRATROPIUM/ALBUTEROL 3 ML VIAL NEB SCH ×4 (13:08→20:05)
[2016-07-20] MEDS: glipiZIDE 5 MG TAB PO SCH (17:14)
[2016-07-20] MEDS: ATORVASTATIN 20 MG TAB PO SCH (20:36)
[2016-07-20] MEDS: hydrOXYzine PAMOATE 25 MG CAP PO SCH (20:36)
[2016-07-20] MEDS: busPIRone HCL 5 MG TAB PO SCH (20:36)
[2016-07-21] MEDS: ALBUTEROL SULFATE 2.5 MG/3 ML VIAL NEB PRN ×2 (01:00→02:10)
[2016-07-21] MEDS: MORPHINE SULFATE INJ 10 MG/ML VIAL IV PRN (02:13)
[2016-07-21] MEDS: SODIUM CHLORIDE 0.9% (FLUSH) 10 ML SYG IV PRN (02:14)
[2016-07-21] MEDS: LEVOTHYROXINE SODIUM 0.075 MG TAB PO SCH (06:07)
[2016-07-21] MEDS: OMEPRAZOLE CAP 20 MG CAP PO SCH (06:07)
[2016-07-21] MEDS: glipiZIDE 5 MG TAB PO SCH (06:08)
--- NOTE | 2016-07-21 06:54 | RAD ---
EXAM: Two view chest. INDICATION: Chest pain. COMPARISON: Chest x-ray: 07/20/2016. FINDINGS: There is interstitial pulmonary edema. Small pleural effusions are present. The heart is enlarged with a left chest wall pacemaker/AICD in place. There is no pneumothorax. IMPRESSION: CHF exacerbation Electronically signed by: Sukhwinder Gregg MD 07/21/2016 6:54 AM CDT Workstation: [id number]
[2016-07-21] MEDS: INSULIN LISPRO 100 UNITS/ML PEN SUBCU SCH ×2 (07:30→11:18)
[2016-07-21] MEDS: POTASSIUM CHLORIDE 20 MEQ TAB PO SCH (07:35)
[2016-07-21] MEDS: METOPROLOL TARTRATE 50 MG TAB PO SCH (07:35)
--- NOTE | 2016-07-21 07:49 | PN ---
SUPERVISING PHYSICIAN: Jimmy García MD DATE: 07/20/26 SUBJECTIVE: The patient is doing much better today. He actually slept through the night. He can la down with no issues. He has actually been up ambulating with no significant dyspnea and he continues to be afebrile. OBJECTIVE: VITAL SIGNS: Temperature 98.1, Pulse 60, blood pressure 98/60, respirations 20 , saturation 88 to 92% on nasal cannula at rest. CHEST: Lung sounds are much improved today, diminished towards the bases but o obvious rhonchi or rales noted and no wheezing. HEART: Paced rhythm. ABDOMEN: Obese and much more soft today, less distended compared to admission. Non-tender, positive bowel sounds. EXTREMITIES: Without cyanosis, clubbing, or edema. NEUROLOGICAL: He is alert and oriented x3. LABORATORY: White count remains stable at 8.8, hemoglobin 10.9, hematocrit 33.9 , platelet count has decreased to 47,000 with differential showing a left shift. Chemistries show a sodium of 134 which is improved from admission of 129 , potassium normal at 3.9, BUN 48, creatinine 2.14 which is improved from admission. Glucose has been well-controlled in the 150s to 160s. Bilirubin remains slightly elevated at 1.3. Liver functions within normal limits. Urinalysis showed to be within normal limits. RADIOLOGY: Repeat chest x-ray today per radiology interpretation shows cardiomegaly with mild edema with right greater than left with left basilar atelectasis versus infiltrate with small bilateral pleural effusions. ASSESSMENT: 1. Acute exacerbation of chronic congestive heart failure with with diastolic/ systolic dysfunction with last echocardiogram noted to be on 04/13/16 with an ejection fraction of 40% with several exacerbations within the last year. 2. History of chronic obstructive pulmonary disease in a chronic smoker having stopped 5 years previously. 3. Chronic renal failure with some prerenal azotemia likely secondary to being on multiple diuretics showing to be stable compared to previous admissions. 4. Electrolyte imbalance with hyponatremia likely secondary to diuretic administration, showing some improvement. 5. Thrombocytopenia with documentation of hypersplenism as noted on previous admission by sonography. 6. Diabetes mellitus type 2 on Metformin and Glucotrol. PLAN: We will continue with Lasix today as he continues to show improvement. Later today we will plan to remove his Johnson catheter and continue to monitor I& Os accordingly. Anticipate discharge tomorrow. When discharged, he has arrangements to be placed on hospice care with [facility]. Until the , we will continue to monitor the patient closely and treat appropriately. He does have an appointment this coming Wednesday or for the [place] system in regards to further pain management and other medications. Hopefully, he can continue with this appointment after discharge. #[id number] [facility]AMPUSJoanna
[2016-07-21] MEDS: IPRATROPIUM/ALBUTEROL 3 ML VIAL NEB SCH ×2 (08:08→11:40)
[2016-07-21] MEDS: BUDESONIDE/FORMOTEROL 160/4.5 60 PUFF/6 GM INH INH SCH (08:12)
[2016-07-21] MEDS: TIOTROPIUM INHALER INH SCH (08:36)
[2016-07-21] MEDS: NIACIN 500 MG TAB PO SCH (08:36)
[2016-07-21] MEDS: LISINOPRIL 5 MG TAB PO SCH (08:37)
[2016-07-21] MEDS: CHOLECALCIFEROL 2,000 IU TAB PO SCH (08:37)
[2016-07-21] MEDS: ARIPiprazole 5 MG TAB PO SCH (08:37)
[2016-07-21] MEDS: ISOSORBIDE MONONITRATE (IMDUR) 30 MG TAB PO SCH (08:37)
[2016-07-21] MEDS: FUROSEMIDE INJ 100 MG/10 ML VIAL IV SCH (08:37)
[2016-07-21] MEDS: GABAPENTIN 300 MG CAP PO SCH (08:37)
[2016-07-21] MEDS: ASPIRIN TABLET 325 MG TAB PO SCH (08:37)
[2016-07-21] MEDS: SODIUM CHLORIDE 0.9% (FLUSH) 10 ML SYG IV SCH (08:38)
[2016-07-21] MEDS: FLUoxetine HCL 20 MG CAP PO SCH (08:38)
[2016-07-21 11:38] VITALS: BP 97/56; TEMP 96.3
[2016-07-21 11:46] VITALS: O2SAT 98
[2016-07-21] MEDS ORDERED: BUMETANIDE TAB 2 MG TAB PO ONE (13:58)
--- NOTE | 2016-07-22 08:01 | DS ---
SUPERVISING PHYSICIAN: Jimmy García MD DISCHARGE DIAGNOSIS: 1. Acute exacerbation of chronic congestive heart failure with with diastolic/ systolic dysfunction with last echocardiogram noted to be on 04/13/16 with an ejection fraction of 40% with several exacerbations within the last year. 2. History of chronic obstructive pulmonary disease in a chronic smoker having stopped 5 years previously. 3. Chronic renal failure with some prerenal azotemia likely secondary to being on multiple diuretics showing to be stable compared to previous admissions. 4. Electrolyte imbalance with hyponatremia likely secondary to diuretic administration, showing some improvement. 5. Thrombocytopenia with documentation of hypersplenism as noted on previous admission by sonography. 6. Diabetes mellitus type 2 on Metformin and Glucotrol. HISTORY OF PRESENT ILLNESS: This is a 66 year-old male patient who on the date of admission o the hospital presented to the Emergency Room because he had over a 50 pound weight gain within the last 2 weeks and was having significant difficulty breathing requiring him to sit up in a chair. He had not been able to sleep for 3 days prior to his admission. He has a longstanding history of renal insufficiency and congestive heart failure and [facility]. He has been on Lasix for many yeas but recently was switched to Torsemide as the Lasix has no longer working. He has a history of chronic pain management and had been on OxyContin prior to coming to the Emergency Room. In the Emergency Department he was pursed lip breathing and had diffuse inspiratory and expiratory wheezing. His WBCs was 8.1 with a hemoglobin of 10.7, hematocrit 32.1 with platelet count of 54,000. There was no left shift. He was hyponatremic with a sodium of 129. His renal function showed BUN of 44, creatinine 2.29 with serum osmolality of 271. BNP was shown to be elevated at 1250. Radiographic studies showed cardiomegaly with left basilar atelectasis and/or infiltrative process. His Initial vital signs showed the patient to have 02 saturation of 90% on room air but he was tachypneic at 26 breaths per minute with a blood pressure of 112/ 73. He was afebrile with a heart rate of 82. The patient requested some fluid be pulled off him and he also wanted hospice care. After a lengthy discussion with the family, they decided to go with [facility]. They came in and discussed the case with the patient and his family. He was given 20 me of Lasix in the Emergency Room and was admitted to the medical/surgical floor. He had good diuresis over the next 24 hours. His CBC was basically unchanged from admission and at this point, he asked that he be discharged home as he is feeling much better and has been walking in the hallways. DISCHARGE PLAN: The patient will be discharged home in fair condition. [facility] as well as his other medications. At his 's request, I have given 1 mg of Bumex in the hospital and I sent him home on some Bumex 1 mg daily and instructed her that she can give an extra milligram in the afternoon if needed and she is to let the [facility] know that he has been put on the Bumex instead of the Lasix. [facility] has also been called in anticipation of the patient's discharge. They will be following him as soon as he gets home and will most likely take over the management of his medications. I have also given him Vistaril for sleep at night as that seems to have helped him in the hospital. He is to resume his previous activities. All his orders will be per the [place] and [facility] but at this point I will resume his home medications including those as stated above. DISCHARGE MEDICATIONS: 1. Spiriva. 2. Symbicort. 3. Ventolin HFA. 4. Ropinirole. 5. Tramadol. 6. Metoprolol. 7. Lisinopril. 8. Levothyroxine 9. Ibuprofen. 10. Fluoxetine. 11. Vitamin D3. 12. BuSpar. 13. Triamterene Hydrochlorothiazide. 14. Omeprazole. 15. Potassium chloride. 16. Niacin. 17. Gabapentin. 18. Metformin. 19. Aspirin.. 20. Atorvastatin. 21. Nitroglycerin. 22. Abilify. 23. Isosorbide. 24. Cyproheptadine. 25. Oxycodone. 26. Glipizide. 27. Bumetanide. 28. Vistaril. Dr. García is the collaborating physician available for consultation. #[id number] [facility]
== END 2016-07-21 15:50 | disposition home or self-care (01) | DRG 291 ==
LOC: ER 04:46 → MS 12:33
PROVIDERS: ADMIT Nurse Practitioner Family; ATTEND Nurse Practitioner Family
DX: I13.2 Hypertensive heart and chronic kidney disease with heart failure and with stage 5 chronic kidney disease, or end stage renal disease (principal); I50.43 Acute on chronic combined systolic (congestive) and diastolic (congestive) heart failure; N18.6 End stage renal disease; E87.6 Hypokalemia; J44.9 Chronic obstructive pulmonary disease, unspecified; E11.22 Type 2 diabetes mellitus with diabetic chronic kidney disease; D73.1 Hypersplenism; D69.6 Thrombocytopenia, unspecified; G25.81 Restless legs syndrome; G89.29 Other chronic pain; J45.909 Unspecified asthma, uncomplicated; E03.9 Hypothyroidism, unspecified; E66.9 Obesity, unspecified; I25.2 Old myocardial infarction; Z95.0 Presence of cardiac pacemaker; Z79.891 Long term (current) use of opiate analgesic; Z79.82 Long term (current) use of aspirin; Z79.84 Long term (current) use of oral hypoglycemic drugs; Z79.51 Long term (current) use of inhaled steroids; Z79.1 Long term (current) use of non-steroidal anti-inflammatories (NSAID); Z79.899 Other long term (current) drug therapy; Z88.8 Allergy status to other drugs, medicaments and biological substances; Z87.891 Personal history of nicotine dependence; Z66 Do not resuscitate; T50.2X5A Adverse effect of carbonic-anhydrase inhibitors, benzothiadiazides and other diuretics, initial encounter; Y92.230 Patient room in hospital as the place of occurrence of the external cause; Z68.34 Body mass index [BMI] 34.0-34.9, adult